=== PATIENT | male | born 2000 | race Caucasian/White ===

== ENCOUNTER 2019-09-18 08:53 | Emergency (ER) | payer SELFPAY ==
--- NOTE | 2019-09-18 08:56 | W.ED.NAVMDI ---
HPI - Nausea/Vomiting/Diarrhea General: Chief complaint: Nausea/Vomiting/Diarrhea Stated complaint: n/v Time Seen by Provider: 09/18/19 08:56 Source: patient Mode of arrival: ambulatory Limitations: no limitations History of Present Illness: HPI Narrative: Patient reports gastric discomfort for the last 2 days. Patient reports vomiting started yesterday evening and then worse this morning with persistent vomiting. Patient reports noticing some blood in emesis this morning. Patient denies any medical problems. Patient denies any routine medications. Patient appears mildly unwell. Patient appears in mild pain. Associated nausea: Yes Associated symtoms: Reports nausea Review of Systems General: Reports: 10 or more systems reviewed and unremarkable except in HPI and below GI: Reports: abdominal pain, nausea and vomiting PFS ED PFSH: Social History (Updated 06/05/19 @ 14:29 by Lucía De Los Santos LPN) Smoking and tobacco status: current every day smoker Physical Exam Const: COMMON NORMALS: no apparent distress and oriented x3 GENERAL APPEARANCE: cooperative HENMT: COMMON NORMALS: normocephalic, TM's normal bilaterally and external nose normal HEAD & SCALP: normal to inspection and normocephalic NOSE: external nose normal TYMPANIC MEMBRANE: TM's normal bilaterally MOUTH: oral and palatal mucosa normal THROAT: posterior oropharynx normal Eye: GENERAL EYE: normal appearance of both eyes Neck/C-Spine: COMMON NORMALS: full ROM Lymph: LYMPHATIC: no lymphadenopathy noted Chest: COMMONS NORMALS: inspection of chest normal Resp: COMMON NORMALS: normal respiratory effort EFFORT & INSPECTION: Yes able to speak in complete sentences Cardio: COMMON NORMALS: regular rate and regular rhythm RATE: regular rate RHYTHM: regular rhythm GI: AUSCULTATION: Yes hyperactive bowel sounds PALPATION: Yes tender Details: LLQ and LUQ : COMMON NORMALS: Yes no CVA tenderness BLADDER/KIDNEY EXAM: Yes no CVA tenderness Back/Pelvis: COMMON NORMALS: no CVA tenderness and thoracic and lumbar spine normal to inspection Extremity: COMMON NORMALS: normal to inspection Neuro: COMMON NORMALS: oriented x3 and moves all extremities Psych: COMMON NORMALS: mental status grossly normal and cooperative Skin: COMMON NORMALS: no rashes or lesions noted GENERAL SKIN EXAM: no rashes or lesions noted Course Vital Signs: Vital signs: Vital Signs Temperature 97.6 F 09/18/19 08:59 Pulse Rate 98 09/18/19 08:59 Respiratory Rate 18 09/18/19 08:59 Blood Pressure 130/88 09/18/19 08:59 Pulse Oximetry 100 09/18/19 08:59 MDM - Nausea/Vomiting/Diarrhea MDM Narrative: Medical decision making narrative: Patient comes in today with complaints of abdominal discomfort for the last 2 to 3 days. Patient reports last night he started having an episode of emesis x1. Patient then reports this morning he threw up multiple times and noticed some blood in his vomit. Patient denies any diarrhea. Exam notes soft abdomen mild tenderness in left upper and lower abdomen. Bowel sounds are present throughout. Vital signs were normal. Skin was warm and dry. Differential diagnosis includes but not limited to gastroenteritis, GI bleed, colitis, bowel viscus perforation, hyperemesis due to cannabis use, peptic ulcer disease, pancreatitis, appendicitis. Laboratory values noted some elevation in hemoglobin hematocrit, blood glucose was 122, patient some mild elevation in bilirubin. Urinalysis was insignificant. Drug screen was positive for cannabis. CT scan of the abdomen and pelvis noted no perforation of bowel, but did note gastro colitis inflammation. Patient was rehydrated with 1500 cc of fluid, and given medication for symptoms. Patient had improvement overall after rehydration and medication treatment. Patient will be treated with antibiotic for 5 days and started on pantoprazole for the next 2 weeks. Instructed patient not to use NSAIDs during that time. Recommended follow-up or return for worsening signs and symptoms. Lab Data: Labs: Lab Results 09/18/19 09/18/19 09/18/19 Range/Units 09:14 09:14 09:30 WBC 6.3 (4.5-13.0) 10^3/ uL RBC 6.26 H (4.1-5.3) 10^6/u L Hgb 17.6 H (11.7-16.6) g/dL Hct 52.1 H (42.0-52.0) % MCV 83.2 (80-94) fL MCH 28.1 (28.0-34.0) pg MCHC 33.8 (30.0-36.0) g/dL RDW 12.8 (12.1-15.1) % Plt Count 302 (130-400) 10^3/c mm MPV 9.6 (7.4-10.4) fL Neut % (Auto) 57.1 % Lymph % (Auto) 29.5 % [place] % (Auto) 7.6 % Eos % (Auto) 4.3 % Baso % (Auto) 1.3 % Neut # (Auto) 3.6 (1.8-8.0) 10^3/u L Lymph # (Auto) 1.9 (1.5-6.5) 10^3/u L [place] # (Auto) 0.5 (0.2-0.9) 10^3/u L Eos # (Auto) 0.3 (0.0-0.8) 10^3/u L Baso # (Auto) 0.1 (0.0-0.1) 10^3/u L Nucleated RBC % (a uto) 0 % Nucleated RBCs # 0.0 /100WBC Sodium 142 (136-145) mmol/L Potassium 3.6 (3.5-5.1) mmol/L Chloride 101 (98-107) mmol/L Carbon Dioxide 23 (22-29) mmol/L Anion Gap 21.6 H (5-19) BUN 12 (6-20) mg/dL Creatinine 1.1 (0.7-1.2) mg/dL GFR Calculation 85.3 L (90-130) mL/min Glucose 122 H (65-115) mg/dL Calculated Osmolal ity 291 (285-295) mOsm/k g Calcium 10.8 H (8.5-10.5) mg/dL Total Bilirubin 1.3 H (0.15-1.2) mg/dL AST 19 (0-40) U/L ALT 18 (0-41) U/L Alkaline Phosphata se 126 (40-130) IU/L Total Protein 8.5 (6.6-8.7) g/dL Albumin 5.4 H (3.5-5.2) g/dL Globulin 3.1 (1.3-4.6) g/dL Lipase 15 (13-60) U/L Urine Color Dark yellow (Yellow) Urine Appearance Sl hazy (CLEAR) Urine pH 5 (5-7) Ur Specific Gravit y 1.025 (1.005-1.030) Urine Protein 1+ H (Negative) Urine Glucose (UA) Norm (Normal) Urine Ketones 2+ H (Negative) Urine Blood Neg (Negative) Urine Nitrate Negative (Negative) Urine Bilirubin 1+ H (NEGATIVE) Urine Urobilinogen 4 H (Negative) mg/dL Ur Leukocyte Stefania ase Negative (Negative) Urine RBC None (0-2) /hpf Urine WBC None (0-5) /hpf Ur Squamous Epith Cells None (0-5) Urine Bacteria 2+ H (NONE) Urine Mucus 2+ Urine Opiates Scre en (Negative) ng/mL Ur Barbiturates Sc reen (Negative) ng/mL Ur Phencyclidine S crn (Negative) ng/mL Ur Amphetamines Sc reen (Negative) ng/mL U Benzodiazepines Scrn (Negative) ng/mL Urine Cocaine Scre en (Negative) ng/mL U Marijuana (THC) Screen (Negative) ng/mL 09/18/19 Range/Units 09:30 WBC (4.5-13.0) 10^3/ uL RBC (4.1-5.3) 10^6/u L Hgb (11.7-16.6) g/dL Hct (42.0-52.0) % MCV (80-94) fL MCH (28.0-34.0) pg MCHC (30.0-36.0) g/dL RDW (12.1-15.1) % Plt Count (130-400) 10^3/c mm MPV (7.4-10.4) fL Neut % (Auto) % Lymph % (Auto) % [place] % (Auto) % Eos % (Auto) % Baso % (Auto) % Neut # (Auto) (1.8-8.0) 10^3/u L Lymph # (Auto) (1.5-6.5) 10^3/u L [place] # (Auto) (0.2-0.9) 10^3/u L Eos # (Auto) (0.0-0.8) 10^3/u L Baso # (Auto) (0.0-0.1) 10^3/u L Nucleated RBC % (a uto) % Nucleated RBCs # /100WBC Sodium (136-145) mmol/L Potassium (3.5-5.1) mmol/L Chloride (98-107) mmol/L Carbon Dioxide (22-29) mmol/L Anion Gap (5-19) BUN (6-20) mg/dL Creatinine (0.7-1.2) mg/dL GFR Calculation (90-130) mL/min Glucose (65-115) mg/dL Calculated Osmolal ity (285-295) mOsm/k g Calcium (8.5-10.5) mg/dL Total Bilirubin (0.15-1.2) mg/dL AST (0-40) U/L ALT (0-41) U/L Alkaline Phosphata se (40-130) IU/L Total Protein (6.6-8.7) g/dL Albumin (3.5-5.2) g/dL Globulin (1.3-4.6) g/dL Lipase (13-60) U/L Urine Color (Yellow) Urine Appearance (CLEAR) Urine pH (5-7) Ur Specific Gravit y (1.005-1.030) Urine Protein (Negative) Urine Glucose (UA) (Normal) Urine Ketones (Negative) Urine Blood (Negative) Urine Nitrate (Negative) Urine Bilirubin (NEGATIVE) Urine Urobilinogen (Negative) mg/dL Ur Leukocyte Stefania ase (Negative) Urine RBC (0-2) /hpf Urine WBC (0-5) /hpf Ur Squamous Epith Cells (0-5) Urine Bacteria (NONE) Urine Mucus Urine Opiates Scre en Negative (Negative) ng/mL Ur Barbiturates Sc reen Negative (Negative) ng/mL Ur Phencyclidine S crn Negative (Negative) ng/mL Ur Amphetamines Sc reen Negative (Negative) ng/mL U Benzodiazepines Scrn Negative (Negative) ng/mL Urine Cocaine Scre en Negative (Negative) ng/mL U Marijuana (THC) Screen Positive H (Negative) ng/mL Discharge Plan Discharge Patient Disposition: Home, Self-Care Clinical Impression: Colitis, Dehydration Condition: Stable Prescriptions: New ondansetron HCl 4 mg tablet 4 mg PO Q8H PRN (Reason: nausea and vomiting) Qty: 10 RF: 0 ciprofloxacin HCl 500 mg tablet 500 mg PO BID Qty: 10 RF: 0 metronidazole 500 mg tablet 500 mg PO BID Qty: 10 RF: 0 dicyclomine 10 mg capsule 10 mg PO TID PRN (Reason: abdominal discomfort) Qty: 14 RF: 0 pantoprazole 40 mg tablet,delayed release (DR/EC) 40 mg PO DAILY Qty: 14 RF: 0 Discharge Orders: Discharge Order (Routine); Ordered 09/18/19 Ordered By: Aristides Cordero Referrals: Sameer Baker MD [Primary Care Provider] - Discharge Diet: Advance as tolerated Discharge Activity: Increase activity as tolerated Patient Instructions: Gastroenteritis (ED) Activity Restrictions/Additional Instructions: Drink clear liquid diet until pain and nausea and vomiting subside. Drink plenty of fluids. Take medications as directed. Follow-up with primary care in 1 week for recheck. Return to the ER for increased blood in stool or new concerns. Coding Level of Care Code ED Carrot Buncher for Chg Fwd Exam Comprehensive
[2019-09-18 08:59] VITALS: BP 130/88; PULSE 98; RESP 18; TEMP 36.4; O2SAT 100; BMI 20.7
--- NOTE | 2019-09-18 09:02 | CT_ITS ---
WS: [id number] CT ABDOMEN AND PELVIS WITH CONTRAST HISTORY: n/v, blood in emesis, abd pain TECHNIQUE: Imaging performed of the abdomen and pelvis with IV contrast. Single phase imaging of the abdomen. Coronal and sagittal reformats are submitted. All CT scans at [facility] use at least one of these dose optimization techniques: automated exposure control; mA and/or kV adjustment per patient size (includes targeted exams where dose is matched to clinical indication); or iterativ e reconstruction. IV CONTRAST: Omnipaque 300; 95 mL IV. Oral contrast: No DLP: 596.8 mGy.cm COMPARISON: None available. Lower thorax: Lung bases are clear. Heart is normal size. No hiatal hernia. Liver/biliary system: Mildly elongated RIGHT lobe of the liver. No mass or bile duct dilatation. Hype rvascular ill-defined nodule in the LEFT lobe liver is probably hemangioma. Gallbladder: Normal. No gallstones or wall thickening. No pericholecystic fluid. Pancreas: Normal. Spleen: Normal. Adrenal glands: Normal. Right kidney: RIGHT kidney is abnormally rotated with the pelvis directed anterior and slightly low l grzegorz. There is no obstruction. RIGHT kidney is anterior to the psoas muscle and causing mild flatteni ng of the IVC. The RIGHT renal artery extends inferiorly and may attach to the RIGHT common iliac art love. If surgery is ever contemplated in this patient this will need to be further evaluated. Left kidney: Normal. Aorta: Normal. Lymphadenopathy: None. Free fluid: None. GI tract: Abnormal appearance of the colon. There is no distention but there is shagginess of the muc aracelis and mild edema. No obstruction. Rectum is normal. Appendix is normal. Abdominal wall: Unremarkable abdominal wall. No hernia. Pelvis: Normal. Bones: Unremarkable. CT/CT abdomen pelvis w con* [id number] IMPRESSION: 1. Mild diffuse colitis. No free fluid or free air. 2. Normal appendix. 3. 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
[2019-09-18] MEDS: sodium chloride 0.9% 1,000 ML 999 ML IV (09:16)
[2019-09-18] MEDS: pantoprazole 40 mg SDV IVP (09:17)
[2019-09-18] MEDS: ondansetron 2 mg/ML SDV 2 mL 4 MG IVP (09:17)
[2019-09-18 09:29] LABS: Basophils # 0.1 10^3/uL (0.0-0.1); Basophils % 1.3 %; Eosinophils # 0.3 10^3/uL (0.0-0.8); Eosinophils % 4.3 %; Hematocrit 52.1 % (42.0-52.0); Hemoglobin 17.6 g/dL (11.7-16.6); Lymphocytes # 1.9 10^3/uL (1.5-6.5); Lymphocytes % 29.5 %; Mean Corpuscular HGB Conc 33.8 g/dL (30.0-36.0); Mean Corpuscular Hemoglobin 28.1 pg (28.0-34.0); Mean Corpuscular Volume 83.2 fL (80-94); Mean Platelet Volume 9.6 fL (7.4-10.4); Monocytes # 0.5 10^3/uL (0.2-0.9); Monocytes % 7.6 %; Neutrophils # 3.6 10^3/uL (1.8-8.0); Neutrophils % 57.1 %; Nucleated Red Blood Cells % 0 %; Platelet Count 302 10^3/cmm (130-400); Red Blood Count 6.26 10^6/uL (4.1-5.3); Red Cell Distribution Width 12.8 % (12.1-15.1); White Blood Count 6.3 10^3/uL (4.5-13.0)
--- NOTE | 2019-09-18 09:29 | PC.NURSE ---
Pt given urinal and urine sample requested.
[2019-09-18 09:40] LABS: Alanine Aminotransferase 18 U/L (0-41); Albumin Level 5.4 g/dL (3.5-5.2); Alkaline Phosphatase 126 IU/L (40-130); Anion Gap 21.6 (5-19); Aspartate Amino Transferase 19 U/L (0-40); Blood Urea Nitrogen 12 mg/dL (6-20); Calcium 10.8 mg/dL (8.5-10.5); Carbon Dioxide 23 mmol/L (22-29); Chloride 101 mmol/L (98-107); Globulin 3.1 g/dL (1.3-4.6); Glomerular Filtration Rate 85.3 mL/min (90-130); Glucose 122 mg/dL (65-115); Lipase 15 U/L (13-60); Osmolality Calculated 291 mOsm/kg (285-295); Potassium 3.6 mmol/L (3.5-5.1); Sodium 142 mmol/L (136-145); Total Bilirubin 1.3 mg/dL (0.15-1.2); Total Protein 8.5 g/dL (6.6-8.7)
[2019-09-18] MEDS: iohexol 300 mg/mL 100 mL Btl IV (09:47)
[2019-09-18 09:59] LABS: Amphetamines Screen Urine Negative (Negative); Barbiturates Screen Urine Negative (Negative); Benzodiazepines Screen Urine Negative (Negative); Cocaine Screen Urine Negative (Negative); Opiate Screen Urine Negative (Negative); PCP Screen Urine Negative (Negative); THC Screen Urine Positive (Negative)
[2019-09-18 10:06] LABS: Add Urine Microscopic? YES; Bilirubin Urine 1+ (NEGATIVE); Blood Urine Neg (Negative); Glucose Urine UA Norm (Normal); Ketones Urine 2+ (Negative); Leukocyte Esterase Urine Negative (Negative); Nitrate Urine Negative (Negative); Protein Urine 1+ (Negative); Specific Gravity, Urine 1.025 (1.005-1.030); Urine Appearance SL Hazy (CLEAR); Urine Color Dark Yellow (Yellow); Urobilinogen Urine 4 mg/dL (Negative); pH Urine 5 (5-7)
[2019-09-18 10:07] LABS: Add Urine Culture? No; Bacteria Urine 2+; Mucus Urine 2+
[2019-09-18] MEDS: metoclopramide 5 mg/mL SDV 2 mL 10 MG IVP (10:25)
[2019-09-18] MEDS: sodium chloride 0.9% 500 ML 999 ML IV (10:28)
[2019-09-18] MEDS: metroNIDAZOLE 500 MG Tablet PO (10:28)
[2019-09-18] MEDS: ciprofloxacin 500 mg Tablet PO (10:29)
[2019-09-18 11:01] VITALS: BP 132/89; PULSE 69; RESP 17; O2SAT 98
== END 2019-09-18 10:59 | disposition home or self-care (01) ==
PROVIDERS: Emergency Provider Nurse Practitioner Family; Family Provider General Practice; PCP General Practice
DX: K52.9 Noninfective gastroenteritis and colitis, unspecified (principal); E86.0 Dehydration; F17.210 Nicotine dependence, cigarettes, uncomplicated
CPT/HCPCS: 12345; 74177; 80053; 80306; 81001; 83690; 85025; 96360; 96361; 96374; 96375; 99283; C9113; J2405; J2765; J7030; J7040; Q9967

== ENCOUNTER 2019-09-20 22:45 | Emergency (ER) | payer SELFPAY ==
[2019-09-20 22:52] VITALS: BP 139/77; PULSE 108; RESP 18; TEMP 37.1; O2SAT 100; BMI 22.1
--- NOTE | 2019-09-20 22:58 | ED_ITS ---
HPI - Chest Pain General: Chief Complaint: Chest Pain Stated Complaint: rib pain/dizzy Time Seen by Provider: 09/20/19 22:53 History of Present Illness: HPI narrative: Patient is a 19-year-old male who comes to the ED with chest pain and dizziness. Symptoms started just prior to arrival. Patient started feeling some chest pain on the lateral right and left anterior side of the chest. He also started feeling a little lightheaded and shaky. Patient states he is a daily marijuana user, but states he has been smoking a lot of marijuana today. Associated symptoms: Deny abdominal pain, dyspnea, fever(s), nausea, palpitations or vomiting Review of Systems Const: Denies: fever, chills or fatigue Eyes: Denies: change in vision or eye discomfort ENMT: Denies: throat pain, painful swallowing, nasal discharge or nasal congestion Card: Reports: chest pain (right and left lateral chest pain.); Denies: palpitations, edema, swelling of feet/ankles, shortness of breath on exertion or shortness of breath when lying down Resp: Denies: shortness of breath, productive cough or non-productive cough GI: Denies: abdominal pain, nausea, vomiting, diarrhea, constipation or blood in stool : Denies: flank pain, difficulty urinating, painful urination or blood in urine Musc: Denies: neck pain, back pain or extremity swelling Skin/Breast: Denies: rash or new lesion Neuro: Reports: dizziness; Denies: headache, numbness in extremities or weakness in extremities PFS ED PFSH: Social History Smoking and tobacco status: current some day smoker Physical Exam Const: COMMON NORMALS: oriented x3, healthy appearing and alert GENERAL APPEARANCE: cooperative and well hydrated HENMT: COMMON NORMALS: normocephalic HEAD & SCALP: normocephalic MOUTH: oral and palatal mucosa normal THROAT: posterior oropharynx normal and uvula midline Eye: COMMON NORMALS: PERRL PUPIL: Yes PERRL Neck/C-Spine: COMMON NORMALS: supple GENERAL: Yes normal visual inspection Chest: CHEST: Yes tenderness (Reproducible tenderness upon palpation of right and left lower lateral chest wall.) Resp: COMMON NORMALS: normal respiratory effort, no retractions, no use of accessory muscles and clear to auscultation bilaterally AUSCULTATION: clear to auscultation bilaterally Cardio: COMMON NORMALS: regular rate, regular rhythm, S1 normal heart sound, S2 normal heart sound, no gallops, no clicks, no murmurs and peripheral pulses 2+ throughout RATE: regular rate RHYTHM: regular rhythm HEART SOUNDS: S1 normal and S2 normal PERIPHERAL PULSES: pulses 2+ throughout GI: COMMON NORMALS: normal to inspection, nondistended, normoactive bowel sounds, soft to palpation, non-tender and no masses PALPATION: Yes soft : COMMON NORMALS: Yes no CVA tenderness BLADDER/KIDNEY EXAM: Yes no CVA tenderness Back/Pelvis: COMMON NORMALS: no CVA tenderness Extremity: COMMON NORMALS: normal to inspection and no pedal edema Neuro: COMMON NORMALS: oriented x3 and moves all extremities SENSORIUM/ORIENTATION: Yes alert Psych: MOOD & AFFECT: Yes anxious Skin: COMMON NORMALS: no rashes or lesions noted GENERAL SKIN EXAM: no rashes or lesions noted and dry skin Course Vital Signs: Vital signs: Vital Signs Temperature 98.7 F 09/20/19 22:52 Pulse Rate 76 09/21/19 01:33 Respiratory Rate 16 09/21/19 01:33 Blood Pressure 124/72 09/21/19 01:33 Pulse Oximetry 99 09/21/19 01:33 MDM - Chest Pain MDM Narrative: Medical decision making narrative: Patient is a 19-year-old male who comes to the ED with chest pain and lightheadedness. Patient states that he has smoked a lot of marijuana today. EKG showed normal sinus rhythm. Troponins were negative. CBC, CMP and urinalysis were unremarkable. Chest x- ray showed no acute findings. Patient's symptoms improved with lorazepam, hydrocodone, IV fluids and Reglan. Patient diagnosed with cannabis abuse with induced anxiety disorder. Patient was discharged with information about cannabis abuse. He was told to follow-up with his PCP in 7 days for reevaluation. Patient understood and agreed with plan. Lab Data: Attestation: I reviewed the patient's lab results. Labs: Lab Results 09/20/19 09/20/19 09/20/19 Range/Units 23:30 23:30 23:30 WBC 5.1 (4.5-13.0) 10^3/ uL RBC 5.42 H (4.1-5.3) 10^6/u L Hgb 15.5 (11.7-16.6) g/dL Hct 45.5 (42.0-52.0) % MCV 83.9 (80-94) fL MCH 28.6 (28.0-34.0) pg MCHC 34.1 (30.0-36.0) g/dL RDW 12.9 (12.1-15.1) % Plt Count 293 (130-400) 10^3/c mm MPV 9.6 (7.4-10.4) fL Neut % (Auto) 50.2 % Lymph % (Auto) 33.5 % [place] % (Auto) 10.6 % Eos % (Auto) 4.5 % Baso % (Auto) 1.2 % Neut # (Auto) 2.6 (1.8-8.0) 10^3/u L Lymph # (Auto) 1.7 (1.5-6.5) 10^3/u L [place] # (Auto) 0.5 (0.2-0.9) 10^3/u L Eos # (Auto) 0.2 (0.0-0.8) 10^3/u L Baso # (Auto) 0.1 (0.0-0.1) 10^3/u L Nucleated RBC % (a uto) 0 % Nucleated RBCs # 0.0 /100WBC Sodium 139 (136-145) mmol/L Potassium 3.4 L (3.5-5.1) mmol/L Chloride 104 (98-107) mmol/L Carbon Dioxide 24 (22-29) mmol/L Anion Gap 14.4 (5-19) BUN 8 (6-20) mg/dL Creatinine 1.2 (0.7-1.2) mg/dL GFR Calculation 77.2 L (90-130) mL/min Glucose 108 (65-115) mg/dL Calculated Osmolal ity 284 L (285-295) mOsm/k g Calcium 9.9 (8.5-10.5) mg/dL Total Bilirubin 0.6 (0.15-1.2) mg/dL AST 18 (0-40) U/L ALT 13 (0-41) U/L Alkaline Phosphata se 107 (40-130) IU/L Troponin T Baselin e 6 (0-15) ng/mL Total Protein 7.6 (6.6-8.7) g/dL Albumin 5.1 (3.5-5.2) g/dL Globulin 2.5 (1.3-4.6) g/dL Urine Color (Yellow) Urine Appearance (CLEAR) Urine pH (5-7) Ur Specific Gravit y (1.005-1.030) Urine Protein (Negative) Urine Glucose (UA) (Normal) Urine Ketones (Negative) Urine Blood (Negative) Urine Nitrate (Negative) Urine Bilirubin (NEGATIVE) Urine Urobilinogen (Negative) mg/dL Ur Leukocyte Stefania ase (Negative) Urine RBC (0-2) /hpf Urine WBC (0-5) /hpf Ur Squamous Epith Cells (0-5) Urine Bacteria (NONE) Urine Mucus 09/21/19 Range/Units 00:30 WBC (4.5-13.0) 10^3/ uL RBC (4.1-5.3) 10^6/u L Hgb (11.7-16.6) g/dL Hct (42.0-52.0) % MCV (80-94) fL MCH (28.0-34.0) pg MCHC (30.0-36.0) g/dL RDW (12.1-15.1) % Plt Count (130-400) 10^3/c mm MPV (7.4-10.4) fL Neut % (Auto) % Lymph % (Auto) % [place] % (Auto) % Eos % (Auto) % Baso % (Auto) % Neut # (Auto) (1.8-8.0) 10^3/u L Lymph # (Auto) (1.5-6.5) 10^3/u L [place] # (Auto) (0.2-0.9) 10^3/u L Eos # (Auto) (0.0-0.8) 10^3/u L Baso # (Auto) (0.0-0.1) 10^3/u L Nucleated RBC % (a uto) % Nucleated RBCs # /100WBC Sodium (136-145) mmol/L Potassium (3.5-5.1) mmol/L Chloride (98-107) mmol/L Carbon Dioxide (22-29) mmol/L Anion Gap (5-19) BUN (6-20) mg/dL Creatinine (0.7-1.2) mg/dL GFR Calculation (90-130) mL/min Glucose (65-115) mg/dL Calculated Osmolal ity (285-295) mOsm/k g Calcium (8.5-10.5) mg/dL Total Bilirubin (0.15-1.2) mg/dL AST (0-40) U/L ALT (0-41) U/L Alkaline Phosphata se (40-130) IU/L Troponin T Baselin e (0-15) ng/mL Total Protein (6.6-8.7) g/dL Albumin (3.5-5.2) g/dL Globulin (1.3-4.6) g/dL Urine Color Yellow (Yellow) Urine Appearance Clear (CLEAR) Urine pH 6.5 (5-7) Ur Specific Gravit y 1.020 (1.005-1.030) Urine Protein Neg (Negative) Urine Glucose (UA) Norm (Normal) Urine Ketones 1+ H (Negative) Urine Blood Neg (Negative) Urine Nitrate Negative (Negative) Urine Bilirubin Neg (NEGATIVE) Urine Urobilinogen 1 H (Negative) mg/dL Ur Leukocyte Stefania ase 1+ H (Negative) Urine RBC 0-4 H (0-2) /hpf Urine WBC 0-4 H (0-5) /hpf Ur Squamous Epith Cells 0-4 H (0-5) Urine Bacteria 1+ H (NONE) Urine Mucus 2+ Imaging Data^: CXR: Attestation: I personally reviewed and interpreted this imaging study as follows: My impression: No acute findings. Pending final radiology report. EKG Data^: EKG 1: Attestation: I personally reviewed and interpreted this EKG as follows: EKG interpretation date: 09/21/19 Interpretation: Normal sinus rhythm, 75 bpm, no ST segment elevation or depression seen, pwmedina presents. 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 Condition: Stable Prescriptions: No Action ondansetron HCl 4 mg tablet 4 mg PO Q8H PRN (Reason: nausea and vomiting) Qty: 10 RF: 0 ciprofloxacin HCl 500 mg tablet 500 mg PO BID Qty: 10 RF: 0 metronidazole 500 mg tablet 500 mg PO BID Qty: 10 RF: 0 dicyclomine 10 mg capsule 10 mg PO TID PRN (Reason: abdominal discomfort) Qty: 14 RF: 0 pantoprazole 40 mg tablet,delayed release (DR/EC) 40 mg PO DAILY Qty: 14 RF: 0 Discharge Orders: Discharge Order (Routine); Ordered 09/21/19 Ordered By: Sameer Arceo Referrals: Sameer Baker MD [Primary Care Provider] - Discharge Diet: Regular Discharge Activity: Resume usual activity Patient Instructions: Cannabis Abuse (ED) Activity Restrictions/Additional Instructions: Follow-up with your PCP in the next 7 days for reevaluation. Continue taking all previously prescribed home medications. I attached some information about cannabis abuse. Stay hydrated and drink plenty of fluids. Discharge Date/Time: 09/21/19 01:38 Coding Level of Care Code ED Clinical Rehab Liaison for Aidan Fwd Exam Comprehensive
--- NOTE | 2019-09-20 23:06 | XR_ITS ---
WS: [id number] XR chest 1V portable [id number] REASON FOR EXAM: cp FINDINGS: Hyper aerated changes suggesting mild air trapping. There are scattered mucous plugs bilaterally. The heart was not enlarged. There is no definite pneumonia, pneumothorax, or mass effect. XR/XR chest 1V portable [id number] IMPRESSION: Upper aerated lungs with mucous plugs suggest bronchial asthma.
--- NOTE | 2019-09-20 23:09 | ECG_ITS ---
Measurements Intervals [place] Rate: 75 P: 72 [place]: 170 QRS: 71 QRSD: 93 T: 40 QT: 357 QTc: 400 SINUS RHYTHM WITH SINUS ARRHYTHMIA No previous ECG available for comparison Electronically Signed On 09-21-2019 18:15:45 CDT by Luzma Coleman M.D. [email or web address]
[2019-09-20] MEDS: sodium chloride 0.9% 1,000 ML 999 ML IV (23:39)
[2019-09-20] MEDS: metoclopramide 5 mg/mL SDV 2 mL 10 MG IVP (23:39)
[2019-09-20 23:40] LABS: Basophils # 0.1 10^3/uL (0.0-0.1); Basophils % 1.2 %; Eosinophils # 0.2 10^3/uL (0.0-0.8); Eosinophils % 4.5 %; Hematocrit 45.5 % (42.0-52.0); Hemoglobin 15.5 g/dL (11.7-16.6); Lymphocytes # 1.7 10^3/uL (1.5-6.5); Lymphocytes % 33.5 %; Mean Corpuscular HGB Conc 34.1 g/dL (30.0-36.0); Mean Corpuscular Hemoglobin 28.6 pg (28.0-34.0); Mean Corpuscular Volume 83.9 fL (80-94); Mean Platelet Volume 9.6 fL (7.4-10.4); Monocytes # 0.5 10^3/uL (0.2-0.9); Monocytes % 10.6 %; Neutrophils # 2.6 10^3/uL (1.8-8.0); Neutrophils % 50.2 %; Nucleated Red Blood Cells % 0 %; Platelet Count 293 10^3/cmm (130-400); Red Blood Count 5.42 10^6/uL (4.1-5.3); Red Cell Distribution Width 12.9 % (12.1-15.1); White Blood Count 5.1 10^3/uL (4.5-13.0)
[2019-09-20 23:54] LABS: Alanine Aminotransferase 13 U/L (0-41); Albumin Level 5.1 g/dL (3.5-5.2); Alkaline Phosphatase 107 IU/L (40-130); Anion Gap 14.4 (5-19); Aspartate Amino Transferase 18 U/L (0-40); Blood Urea Nitrogen 8 mg/dL (6-20); Calcium 9.9 mg/dL (8.5-10.5); Carbon Dioxide 24 mmol/L (22-29); Chloride 104 mmol/L (98-107); Globulin 2.5 g/dL (1.3-4.6); Glomerular Filtration Rate 77.2 mL/min (90-130); Glucose 108 mg/dL (65-115); Osmolality Calculated 284 mOsm/kg (285-295); Potassium 3.4 mmol/L (3.5-5.1); Sodium 139 mmol/L (136-145); Total Bilirubin 0.6 mg/dL (0.15-1.2); Total Protein 7.6 g/dL (6.6-8.7); Troponin(5th) Baseline 6 ng/mL (0-15)
[2019-09-21] MEDS: ketorolac 30 mg/mL INJ IVP (00:22)
[2019-09-21] MEDS: HYDROcodone-acetaminophen 5-325 mg Tablet 1 TAB PO (00:52)
[2019-09-21] MEDS: LORazepam 2 mg/mL INJ 1 mL 1 MG IVP (00:52)
[2019-09-21 01:02] LABS: Bilirubin Urine Neg (NEGATIVE); Blood Urine Neg (Negative); Glucose Urine UA Norm (Normal); Ketones Urine 1+ (Negative); Leukocyte Esterase Urine 1+ (Negative); Nitrate Urine Negative (Negative); Protein Urine Neg (Negative); Urine Appearance Clear (CLEAR); Urine Color Yellow (Yellow); Urobilinogen Urine 1 mg/dL (Negative); pH Urine 6.5 (5-7)
[2019-09-21 01:04] LABS: Add Urine Culture? No; Bacteria Urine 1+; Mucus Urine 2+; RBC Urine 0-4 /hpf (0-2); Squamous Epithelial Cell Urine 0-4 (0-5); WBC Urine 0-4 /hpf (0-5)
[2019-09-21 01:33] VITALS: BP 124/72; PULSE 76; RESP 16; O2SAT 99
== END 2019-09-21 01:38 | disposition home or self-care (01) ==
PROVIDERS: Emergency Provider Physician Assistant; Family Provider General Practice; PCP General Practice
DX: F12.180 Cannabis abuse with cannabis-induced anxiety disorder (principal); F17.210 Nicotine dependence, cigarettes, uncomplicated
CPT/HCPCS: 12345; 71045; 80053; 81001; 84484; 85025; 93005; 96361; 96374; 96375; 99281; 99284; J1885; J2060; J2765; J7030

== ENCOUNTER 2020-01-18 01:48 | Emergency (ER) | payer SELFPAY ==
[2020-01-18 01:53] VITALS: BP 117/71; PULSE 71; RESP 17; TEMP 36.8; O2SAT 96; BMI 20.9
--- NOTE | 2020-01-18 01:59 | W.ED.MALEGU ---
HPI - Male Genitourinary General: Chief complaint: Urogenital-Male Stated complaint: found lump/ pain gone up today Time Seen by Provider: 01/18/20 01:59 History of Present Illness: HPI Narrative: 19-year-old male presents with left testicular pain, and a painful lump for the past couple of days. He noticed a lump last night. He was seen in urgent care earlier today, and the lump was felt then as well. He was placed on antibiotics. He notes that the pain worsened tonight. He believes he has had an on and off fever for the past couple of days, low-grade. He denies any discharge. MD Complaint: testicle pain Onset (ago): day(s) Duration: constant Location: left testicle Severity: moderate Quality: aching Relieving factors: none Exacerbating factors: urination Associated symptoms: Reports fevers/chills, nausea and mass; Deny hematuria, rash, swelling, urinary incontinence, urinary retention or vomiting Review of Systems Const: Denies: fever(s) or chills Card: Denies: chest pain or palpitations Resp: Denies: dyspnea or productive cough GI: Reports: nausea; Denies: vomiting : Denies: urinary incontinence or hematuria PFS ED PFSH: Social History Smoking and tobacco status: current some day smoker Physical Exam Const: COMMON NORMALS: no acute distress and patient oriented x3 Chest: COMMONS NORMALS: normal inspection of the chest Resp: COMMON NORMALS: normal respiratory effort, No retractions, No use of accessory muscles and clear to auscultation bilaterally AUSCULTATION: clear to auscultation bilaterally Cardio: COMMON NORMALS: regular rate and regular rhythm RATE: regular rate RHYTHM: regular rhythm HEART SOUNDS: no murmurs GI: COMMON NORMALS: Soft to palpation and non-tender PALPATION: Yes Soft to palpation : PENIS: normal penis SCROTUM: Yes testes descended bilaterally TESTES: Yes testicular tenderness and No testicular mass Neuro: COMMON NORMALS: patient oriented x3 Course Vital Signs: Vital signs: Vital Signs Temperature 98.2 F 01/18/20 01:53 Pulse Rate 71 01/18/20 03:40 Respiratory Rate 16 01/18/20 03:40 Blood Pressure 92/49 01/18/20 03:40 Pulse Oximetry 96 01/18/20 03:40 MDM - Male MDM Narrative: Medical decision making narrative: 19-year-old male presents with left testicular pain. He said he felt the mass. I do not feel a mass. Urinalysis is essentially negative. His ultrasound shows a varicosity in the left scrotum, with no other abnormality. We will have him continue his antibiotics he was placed on yesterday, and treat his pain. Lab Data: Labs: Lab Results 01/18/20 Range/Units 02:33 Urine Color Yellow (Yellow) Urine Appearance Clear (CLEAR) Urine pH 6 (5-7) Ur Specific Gravit y 1.020 (1.005-1.030) Urine Protein Trace (Negative) Urine Glucose (UA) Norm (Normal) Urine Ketones Negative (Negative) Urine Blood Neg (Negative) Urine Nitrate Negative (Negative) Urine Bilirubin Neg (NEGATIVE) Urine Urobilinogen Norm (Negative) mg/dL Ur Leukocyte Stefania ase Negative (Negative) Urine RBC 0-4 H (0-2) /hpf Urine WBC 0-4 H (0-5) /hpf Ur Squamous Epith Cells 0-4 H (0-5) Amorphous Sediment Not Reportable Urine Bacteria Trace (NONE) Hyaline Casts 5-10 H Urine Mucus 2+ Discharge Plan Discharge Patient Disposition: Home Clinical Impression: Pain in left testicle Condition: Stable Prescriptions: New ketorolac 10 mg tablet 10 mg PO TID PRN (Reason: pain) Qty: 10 RF: 0 No Action ondansetron HCl [Zofran] 4 mg tablet 4 mg PO Q8H PRN (Reason: nausea and vomiting) Qty: 20 RF: 0 sulfamethoxazole-trimethoprim [Bactrim DS] 800-160 mg tablet 1 tab PO Q12H 7 Days Qty: 14 RF: 0 pantoprazole 40 mg tablet,delayed release (DR/EC) 40 mg PO DAILY Qty: 14 RF: 0 Discharge Orders: Discharge Order (Routine); Ordered 01/18/20 Ordered By: Kamaljit Salazar Discharge Diet: Advance as tolerated Discharge Activity: Increase activity as tolerated Patient Instructions: Testicle Pain (ED) Activity Restrictions/Additional Instructions: Continue your antibiotics. Pain medication as directed. Ice may help. Return for fever greater than 101 despite 2-3 doses of antibiotics, discharge or blood from the penis, worsening pain despite treatment, other concerning symptoms. Coding Level of Care Code ED Vegetable Ii Farmworker for Chg Fwd Exam Detailed
[2020-01-18 02:03] VITALS: BP 115/81; PULSE 72; RESP 17; O2SAT 97
--- NOTE | 2020-01-18 02:14 | US_ITS ---
WS: [id number] TESTICULAR ULTRASOUND HISTORY: l testicle pain COMPARISON: None available. TECHNIQUE: Real-time and color Doppler imaging or utilized to perform a testicular ultrasound. Right testicle: 4.3 cm x 2.6 cm x 2.0 cm. Normal size and echogenicity. No mass or torsion. Normal color Doppler is present throughout. Systolic and diastolic velocities are both present. No significant hydrocele. Right epididymis: Normal epididymis with no increased vascularity. Left testicle: 4.2 cm x 3.0 cm x 2.2 cm. Normal size and echogenicity. No mass or torsion. Color Doppler is present. Slightly increased as compared to the RIGHT. No significant hydrocele. Left epididymis: Limited evaluation. Not well visualized. US/US scrotum [id number] IMPRESSION: 1. Incomplete evaluation of the LEFT epididymis. Patient has been called back for additional imaging. If the patient returns an addendum will be submitted. 2. Suspicious for mild LEFT orchitis. Indeterminate for LEFT epididymitis. 3. No testicular mass.
[2020-01-18 02:34] VITALS: PULSE 73; RESP 17; O2SAT 94
--- NOTE | 2020-01-18 02:48 | PC.NURSE ---
ultrasound in room
[2020-01-18 02:56] LABS: Bilirubin Urine Neg (NEGATIVE); Blood Urine Neg (Negative); Glucose Urine UA Norm (Normal); Ketones Urine Negative (Negative); Leukocyte Esterase Urine Negative (Negative); Nitrate Urine Negative (Negative); Protein Urine Trace (Negative); Urine Appearance Clear (CLEAR); Urine Color Yellow (Yellow); Urobilinogen Urine Norm (Negative); pH Urine 6 (5-7)
[2020-01-18 02:57] LABS: Add Urine Microscopic? YES; RBC Urine 0-4 /hpf (0-2); WBC Urine 0-4 /hpf (0-5)
[2020-01-18 02:58] LABS: Add Urine Culture? No; Bacteria Urine TRACE; Mucus Urine 2+; Squamous Epithelial Cell Urine 0-4 (0-5)
[2020-01-18 03:01] VITALS: BP 99/51; PULSE 69; RESP 16; O2SAT 94
[2020-01-18 03:40] VITALS: BP 92/49; PULSE 71; RESP 16; O2SAT 96
[2020-01-18 03:49] VITALS: BP 101/48; PULSE 84; RESP 16; O2SAT 96
== END 2020-01-18 03:54 | disposition home or self-care (01) ==
PROVIDERS: Emergency Provider Emergency Medicine
DX: N50.812 Left testicular pain (principal); F17.210 Nicotine dependence, cigarettes, uncomplicated
CPT/HCPCS: 12345; 76870; 81001; 99282; 99283

== ENCOUNTER 2020-01-20 23:35 | Emergency (ER) | payer SELFPAY ==
[2020-01-20 23:41] VITALS: BP 145/60; PULSE 92; RESP 14; TEMP 36.7; O2SAT 97; BMI 20.9
--- NOTE | 2020-01-20 23:45 | ECG_ITS ---
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 Measurements Intervals [place] Rate: 58 P: 71 NH: 176 QRS: 77 QRSD: 92 T: 54 QT: 387 QTc: 382 Interpretive Statements SINUS BRADYCARDIA EARLY REPOLARIZATION [ST ELEVATION WITH NORMALLY INFLECTED T WAVE] Compared to ECG 09/20/2019 23:29:35 Early repolarization now present Sinus rhythm no longer present Sinus arrhythmia no longer present Electronically Signed On 01-21-2020 16:18:49 CDT by Roge Ralph M.D. [id number]
--- NOTE | 2020-01-20 23:55 | ED_ITS ---
HPI - Neuro Symptoms/Deficit General: Chief Complaint: Neuro Symptoms/Deficit Stated Complaint: leg pain/ light headed/ blurry vision Time Seen by Provider: 01/20/20 23:42 Source: patient Mode of arrival: ambulatory Limitations: no limitations History of Present Illness: HPI Narrative: 19-year-old male states he has had numbness to his legs and his body. Patient was diagnosed with variceal his testicle and he is concerned he is got a blood clot from that. He denies any pain in his legs denies any difficulty walking. Denies any headache or slurred speech. Associated symptoms: Deny chest pain, nausea or vomiting Review of Systems Const: Denies: fever(s), chills, body aches or change in appetite Eyes: Denies: blurry vision or eye discomfort ENMT: Denies: throat pain or dental pain Card: Denies: chest pain Resp: Denies: dyspnea GI: Denies: abdominal pain, nausea, vomiting or diarrhea : Denies: dysuria Musc: Denies: neck pain or back pain Skin/Breast: Denies: rash Neuro: Reports: numbness in extremities Psych: Denies: depression Delfino/Lymph: Denies: easy bruising All/Imm: Denies: urticaria PFSH ED PFSH: Social History Smoking and tobacco status: current every day smoker Substance/Drug Use: current Substance/Drug use frequency: few times a week Substance/Drug use type: Marijuana Physical Exam Const: COMMON NORMALS: no acute distress, patient oriented x3 and healthy appearing HENMT: COMMON NORMALS: normocephalic and atraumatic HEAD & SCALP: normocephalic and atraumatic Eye: COMMON NORMALS: Equal, round and reactive pupils present and EOMs intact bilaterally PUPIL: Yes Equal, round and reactive pupils present Neck/C-Spine: COMMON NORMALS: full ROM and supple Chest: COMMONS NORMALS: normal inspection of the chest and normal palpation of entire chest wall Resp: COMMON NORMALS: normal respiratory effort, No retractions, No use of accessory muscles and clear to auscultation bilaterally AUSCULTATION: clear to auscultation bilaterally Cardio: COMMON NORMALS: regular rate, regular rhythm and No murmurs present (Cardio) RATE: regular rate RHYTHM: regular rhythm GI: COMMON NORMALS: Normal to inspection, nondistended, normoactive bowel sounds present, Soft to palpation, non-tender and no masses PALPATION: Yes Soft to palpation Extremity: COMMON NORMALS: normal to inspection and full ROM Neuro: COMMON NORMALS: patient oriented x3, moves all extremities and no focal motor deficits Psych: COMMON NORMALS: mental status grossly normal, Normal thought process present and cooperative THOUGHT PROCESS: Normal thought process present Skin: COMMON NORMALS: no rashes or lesions noted and no wounds GENERAL SKIN EXAM: no rashes or lesions noted Course Vital Signs: Vital signs: Vital Signs Temperature 98.1 F 01/20/20 23:41 Pulse Rate 92 01/20/20 23:41 Respiratory Rate 14 01/20/20 23:41 Blood Pressure 145/60 01/20/20 23:41 Pulse Oximetry 97 01/20/20 23:41 MDM - Neuro Symptoms/Deficit MDM Narrative: Medical decision making narrative: Eben presents here with paresthesias. Patient's neurological exam here is benign he has no weakness. Patient no signs of stroke. Patient's lab work here is normal. EKG is normal as well. He is stable for discharge and is return if worsening. Lab Data: Labs: Lab Results 01/21/20 01/21/20 Range/Units 00:40 00:40 WBC 5.9 (4.5-13.0) 10^3/ uL RBC 5.22 (4.1-5.3) 10^6/u L Hgb 14.9 (11.7-16.6) g/dL Hct 46.6 (42.0-52.0) % MCV 89.3 (80-94) fL MCH 28.5 (28.0-34.0) pg MCHC 32.0 (30.0-36.0) g/dL RDW 13.3 (12.1-15.1) % Plt Count 271 (130-400) 10^3/c mm MPV 9.6 (7.4-10.4) fL Neut % (Auto) 52.2 % Lymph % (Auto) 28.9 % [place]ock[place] % (Auto) 12.3 % Eos % (Auto) 5.0 % Baso % (Auto) 1.4 % Neut # (Auto) 3.06 (1.8-8.0) 10^3/u L Lymph # (Auto) 1.7 (1.5-6.5) 10^3/u L [place] # (Auto) 0.7 (0.2-0.9) 10^3/u L Eos # (Auto) 0.3 (0.0-0.8) 10^3/u L Baso # (Auto) 0.1 (0.0-0.1) 10^3/u L Nucleated RBC % (a uto) 0 % Nucleated RBCs # 0.0 /100WBC Sodium 141 (136-145) mmol/L Potassium 4.5 (3.5-5.1) mmol/L Chloride 104 (98-107) mmol/L Carbon Dioxide 29 (22-29) mmol/L Anion Gap 12.5 (5-19) BUN 15 (6-20) mg/dL Creatinine 1.3 H (0.7-1.2) mg/dL GFR Calculation 70.4 L (90-130) mL/min Glucose 84 (65-115) mg/dL Calculated Osmolal ity 287 (285-295) mOsm/k g Calcium 9.0 (8.5-10.5) mg/dL Total Bilirubin 0.3 (0.15-1.2) mg/dL AST 19 (0-40) U/L ALT 18 (0-41) U/L Alkaline Phosphata se 102 (40-130) IU/L Total Protein 6.5 L (6.6-8.7) g/dL Albumin 4.2 (3.5-5.2) g/dL Globulin 2.3 (1.3-4.6) g/dL EKG Data^: EKG 1: Attestation: I personally reviewed and interpreted this EKG as follows: EKG interpretation date: 01/21/20 EKG interpretation time: 01:11 Interpretation: sinus kayleen hr [address] or t wave abnormalities qrs 92 qtc 384 Discharge Plan Discharge Patient Disposition: Home Clinical Impression: Paresthesia Condition: Stable Prescriptions: No Action ondansetron HCl [Zofran] 4 mg tablet 4 mg PO Q8H PRN (Reason: nausea and vomiting) Qty: 20 RF: 0 sulfamethoxazole-trimethoprim [Bactrim DS] 800-160 mg tablet 1 tab PO Q12H 7 Days Qty: 14 RF: 0 pantoprazole 40 mg tablet,delayed release (DR/EC) 40 mg PO DAILY Qty: 14 RF: 0 ketorolac 10 mg tablet 10 mg PO TID PRN (Reason: pain) Qty: 10 RF: 0 Discharge Orders: Discharge Order (Routine); Ordered 01/21/20 Ordered By: Soren Gonzalez Discharge Diet: Advance as tolerated Discharge Activity: Resume usual activity Patient Instructions: Paresthesia (ED) Coding Level of Care Code ED Child Center Assistant for Aidan Fwkarl Exam Comprehensive
[2020-01-21] MEDS: sodium chloride 0.9% 1,000 ML 999 ML IV (00:45)
[2020-01-21 00:51] LABS: Basophils # 0.1 10^3/uL (0.0-0.1); Basophils % 1.4 %; Eosinophils # 0.3 10^3/uL (0.0-0.8); Hematocrit 46.6 % (42.0-52.0); Hemoglobin 14.9 g/dL (11.7-16.6); Lymphocytes # 1.7 10^3/uL (1.5-6.5); Lymphocytes % 28.9 %; Mean Corpuscular Hemoglobin 28.5 pg (28.0-34.0); Mean Corpuscular Volume 89.3 fL (80-94); Mean Platelet Volume 9.6 fL (7.4-10.4); Monocytes # 0.7 10^3/uL (0.2-0.9); Monocytes % 12.3 %; Neutrophils # 3.06 10^3/uL (1.8-8.0); Neutrophils % 52.2 %; Nucleated Red Blood Cells % 0 %; Platelet Count 271 10^3/cmm (130-400); Red Blood Count 5.22 10^6/uL (4.1-5.3); Red Cell Distribution Width 13.3 % (12.1-15.1); White Blood Count 5.9 10^3/uL (4.5-13.0)
[2020-01-21 01:09] LABS: Alanine Aminotransferase 18 U/L (0-41); Albumin Level 4.2 g/dL (3.5-5.2); Alkaline Phosphatase 102 IU/L (40-130); Anion Gap 12.5 (5-19); Aspartate Amino Transferase 19 U/L (0-40); Blood Urea Nitrogen 15 mg/dL (6-20); Carbon Dioxide 29 mmol/L (22-29); Chloride 104 mmol/L (98-107); Globulin 2.3 g/dL (1.3-4.6); Glomerular Filtration Rate 70.4 mL/min (90-130); Glucose 84 mg/dL (65-115); Osmolality Calculated 287 mOsm/kg (285-295); Potassium 4.5 mmol/L (3.5-5.1); Sodium 141 mmol/L (136-145); Total Bilirubin 0.3 mg/dL (0.15-1.2); Total Protein 6.5 g/dL (6.6-8.7)
[2020-01-21 02:08] VITALS: BP 107/68; PULSE 83; RESP 18; O2SAT 99
== END 2020-01-21 02:10 | disposition home or self-care (01) ==
PROVIDERS: Emergency Provider Emergency Medicine
DX: R20.2 Paresthesia of skin (principal); F17.210 Nicotine dependence, cigarettes, uncomplicated
CPT/HCPCS: 12345; 80053; 85025; 93005; 96360; 99282; J7030

== ENCOUNTER 2020-01-25 02:51 | Emergency (ER) | payer SELFPAY ==
[2020-01-25 02:57] VITALS: BP 118/81; PULSE 88; RESP 16; TEMP 36.8; O2SAT 96; BMI 20.7
--- NOTE | 2020-01-25 04:22 | W.ED.MALEGU ---
HPI - Male Genitourinary General: Chief complaint: Urogenital-Male Stated complaint: GROIN PAIN Time Seen by Provider: 01/25/20 03:16 History of Present Illness: HPI Narrative: 19-year-old male in his second ER visit and fourth visit total for left testicle pain. He presents with left testicle pain that started tonight. He said that it hurt so badly, that his vision was blurred. It is improved currently. He has been treated recently for epididymitis with antibiotics. He states tomorrow is his last dose. He has no penile discharge. No bleeding. No mass, and no overt swelling. He had had an ultrasound last week showing no testicular mass with good blood flow. There was some question, as the left epididymis was incompletely visualized. MD Complaint: testicle pain Onset (ago): hour(s) Duration: constant Location: left testicle Severity: moderate Relieving factors: none Exacerbating factors: urination and movement Associated symptoms: Deny discharge, fevers/chills, hematuria or vomiting Review of Systems Const: Denies: fever(s) or chills Card: Denies: chest pain Resp: Denies: dyspnea GI: Denies: abdominal pain, vomiting or hematemesis : Denies: hematuria Neuro: Denies: numbness in extremities PFS ED PFSH: Family History (Updated 01/21/20 @ 09:37 by Madeline Blair LPN) Unknown Cancer Testicular Cancer Social History (Updated 01/21/20 @ 09:38 by Madeline Blair LPN) Smoking and tobacco status: former smoker Quit status (tobacco): has quit using tobacco Second hand smoke exposure: Yes Alcohol intake: never Physical Exam Const: COMMON NORMALS: no acute distress Chest: COMMONS NORMALS: normal inspection of the chest Resp: COMMON NORMALS: normal respiratory effort, No use of accessory muscles and clear to auscultation bilaterally AUSCULTATION: clear to auscultation bilaterally Cardio: COMMON NORMALS: regular rate, regular rhythm and No murmurs present (Cardio) RATE: regular rate RHYTHM: regular rhythm GI: COMMON NORMALS: Soft to palpation, non-tender and no masses PALPATION: Yes Soft to palpation : COMMON NORMALS: Yes normal external exam, Yes Testes normal, Yes scrotum normal and Yes no scrotal swelling PENIS: normal penis TESTES: Yes testicular lie normal, No testicular swelling, Yes testicular tenderness Testicular tenderness laterality: left and No testicular mass Course Vital Signs: Vital signs: Vital Signs Temperature 98.2 F 01/25/20 02:57 Pulse Rate 88 01/25/20 02:57 Respiratory Rate 16 01/25/20 02:57 Blood Pressure 118/81 01/25/20 02:57 Pulse Oximetry 96 01/25/20 02:57 MDM - Male MDM Narrative: Medical decision making narrative: This patient is seen for left testicle pain. He notes that his pain is essentially resolved at this point. He left a urine sample, but shortly thereafter decided to leave AGAINST MEDICAL ADVICE. He signed the form. He is certainly alert and oriented, and able to make those decisions for himself. Discharge Plan Discharge Patient Disposition: Left Against Medical Advice Clinical Impression: Pain in left testicle Prescriptions: No Action sertraline [Zoloft] 50 mg tablet 50 mg PO DAILY Qty: 30 RF: 3 ondansetron HCl [Zofran] 4 mg tablet 4 mg PO Q8H PRN (Reason: nausea and vomiting) Qty: 20 RF: 0 sulfamethoxazole-trimethoprim [Bactrim DS] 800-160 mg tablet 1 tab PO Q12H 7 Days Qty: 14 RF: 0 ketorolac 10 mg tablet 10 mg PO TID PRN (Reason: pain) Qty: 10 RF: 0 Discharge Date/Time: 01/25/20 03:48 Coding Level of Care Code ED Retail Field Representative for Aidan Fwd Exam Detailed
== END 2020-01-25 03:48 | disposition left against medical advice (07) ==
PROVIDERS: Emergency Provider Emergency Medicine
DX: N50.812 Left testicular pain (principal); Z87.891 Personal history of nicotine dependence
CPT/HCPCS: 12345; 99281

== ENCOUNTER 2020-01-27 03:06 | Emergency (ER) | payer SELFPAY ==
[2020-01-27 03:12] VITALS: BP 119/69; PULSE 114; RESP 18; TEMP 36.6; O2SAT 97
--- NOTE | 2020-01-27 03:28 | US_ITS ---
WS: [id number] SCROTAL ULTRASOUND EXAMINATION CLINICAL INFORMATION: testicle pain COMPARISON: January 18, 2020 FINDINGS: TESTES Normal in size and echotexture, without focal lesion. Color Doppler: Normal color Doppler flow pattern. Right testes size: 4.9 cm x 2.8 cm x 2.0 cm. Left testes size: 4.7 cm x 2.7 cm x 2.4 cm. EPIDIDYMIDES Normal in size and echotexture, without focal lesion. Color Doppler: Normal color Doppler flow pattern. Right epididymis size: 1.0 cm x cm x cm. Left epididymitis size: 1.1 cm x cm x cm. HYDROCELE None. VARICOCELE Small bilateral varicoceles. Right varicocele measures 1.4 x 1.6 cm and left varicocele measures 1.7 x 1.0 cm OTHER FINDINGS None. US/US scrotum [id number] IMPRESSION: 1. Testicles are normal in size and echotexture today. Normal vascularity. 2. Small bilateral varicoceles described above.
--- NOTE | 2020-01-27 03:29 | ED_ITS ---
HPI - Male Genitourinary General: Chief complaint: Urogenital-Male Stated complaint: swelling in groin Time Seen by Provider: 01/27/20 03:23 Source: patient Mode of arrival: ambulatory Limitations: no limitations History of Present Illness: HPI Narrative: 19-year-old male has been seen multiple times in the last 2 weeks for testicle pain. Patient states it got worse tonight. He had ultrasound 1 week ago showed a possible epididymitis. Patient's finished antibiotics. Denies any fevers. MD Complaint: testicle pain Onset (ago): day(s) Duration: constant Location: right testicle and left testicle Severity: severe Quality: sharp Relieving factors: none Exacerbating factors: none Associated symptoms: Deny nausea or vomiting Review of Systems Const: Denies: fever(s), chills, body aches or change in appetite Eyes: Denies: blurry vision or eye discomfort ENMT: Denies: throat pain or dental pain Card: Denies: chest pain Resp: Denies: dyspnea GI: Denies: abdominal pain, nausea, vomiting or diarrhea : Reports: testicular pain Musc: Denies: neck pain or back pain Skin/Breast: Denies: rash Neuro: Denies: headache(s) Psych: Denies: depression Delfino/Lymph: Denies: easy bruising All/Imm: Denies: urticaria PFSH ED PFSH: Family History Unknown Cancer Testicular Cancer Social History Smoking and tobacco status: former smoker Quit status (tobacco): has quit using tobacco Second hand smoke exposure: Yes Alcohol intake: never Physical Exam Const: COMMON NORMALS: no acute distress, patient oriented x3 and healthy appearing HENMT: COMMON NORMALS: normocephalic and atraumatic HEAD & SCALP: normocephalic and atraumatic Eye: COMMON NORMALS: Equal, round and reactive pupils present and EOMs intact bilaterally PUPIL: Yes Equal, round and reactive pupils present Neck/C-Spine: COMMON NORMALS: full ROM and supple Chest: COMMONS NORMALS: normal inspection of the chest and normal palpation of entire chest wall Resp: COMMON NORMALS: normal respiratory effort, No retractions, No use of accessory muscles and clear to auscultation bilaterally AUSCULTATION: clear to auscultation bilaterally Cardio: COMMON NORMALS: regular rate, regular rhythm and No murmurs present (Cardio) RATE: regular rate RHYTHM: regular rhythm GI: COMMON NORMALS: Normal to inspection, nondistended, normoactive bowel sounds present, Soft to palpation, non-tender and no masses PALPATION: Yes Soft to palpation : OTHER: Bilateral testicle tenderness with no obvious swelling Extremity: COMMON NORMALS: normal to inspection and full ROM Neuro: COMMON NORMALS: patient oriented x3, moves all extremities and no focal motor deficits Psych: COMMON NORMALS: mental status grossly normal, Normal thought process present and cooperative THOUGHT PROCESS: Normal thought process present Skin: COMMON NORMALS: no rashes or lesions noted and no wounds GENERAL SKIN EXAM: no rashes or lesions noted Course Vital Signs: Vital signs: Vital Signs Temperature 97.9 F 01/27/20 03:12 Pulse Rate 80 01/27/20 03:43 Respiratory Rate 16 01/27/20 03:43 Blood Pressure 140/70 01/27/20 03:43 Pulse Oximetry 97 01/27/20 03:43 MDM - Male MDM Narrative: Medical decision making narrative: Patient presents with testicle pain that is been chronic in nature. Patient appears to have anxiety as well. He is well-appearing here and has no signs of torsion. Patient is stable for discharge and return if worsening. He is to follow-up with PCP in 3 to 5 days Imaging Data: US: Attestation: I personally reviewed and interpreted this imaging study as follows: Radiologist's impression: No acute abnormality Discharge Plan Discharge Patient Disposition: Home Clinical Impression: Pain in both testicles Condition: Stable Prescriptions: No Action sertraline [Zoloft] 50 mg tablet 50 mg PO DAILY Qty: 30 RF: 3 ondansetron HCl [Zofran] 4 mg tablet 4 mg PO Q8H PRN (Reason: nausea and vomiting) Qty: 20 RF: 0 sulfamethoxazole-trimethoprim [Bactrim DS] 800-160 mg tablet 1 tab PO Q12H 7 Days Qty: 14 RF: 0 ketorolac 10 mg tablet 10 mg PO TID PRN (Reason: pain) Qty: 10 RF: 0 Discharge Orders: Discharge Order (Routine); Ordered 01/27/20 Ordered By: Korby Lisa Discharge Diet: Advance as tolerated Discharge Activity: Resume usual activity Patient Instructions: Testicle Pain (ED) Coding Level of Care Code ED Receivable Executive for Suzanneg Fwd Exam Comprehensive
[2020-01-27 03:43] VITALS: BP 140/70; PULSE 80; RESP 16; O2SAT 97
== END 2020-01-27 05:04 | disposition home or self-care (01) ==
PROVIDERS: Emergency Provider Emergency Medicine
DX: N50.812 Left testicular pain (principal); N50.811 Right testicular pain; Z87.891 Personal history of nicotine dependence
CPT/HCPCS: 12345; 76870; 99281; 99282

== ENCOUNTER → 2020-03-13 16:22 | Outpatient (BNVA) | payer SELFPAY | PROVIDERS: Visit Provider Nurse Practitioner Family | DX: R30.0 Dysuria (principal); R82.90 Unspecified abnormal findings in urine | CPT/HCPCS: 81000; 87086; 87491; 87591 ==

== ENCOUNTER → 2020-04-04 15:30 | Outpatient (BNVA) | payer SELFPAY | PROVIDERS: Visit Provider Nurse Practitioner Family | DX: R30.0 Dysuria (principal) | CPT/HCPCS: 81000 ==

== ENCOUNTER 2020-04-16 14:18 | Emergency (ER) | payer SELFPAY ==
[2020-04-16 14:21] VITALS: BP 133/71; PULSE 91; RESP 17; TEMP 36.2; BMI 21.4
--- NOTE | 2020-04-16 15:02 | W.ED.ANXIETY ---
HPI - Anxiety General: Chief Complaint: Anxiety Stated Complaint: Pill stuck in throat Time Seen by Provider: 04/16/20 14:22 Source: patient Mode of arrival: ambulatory Limitations: no limitations History of Present Illness: HPI narrative: Patient states that he took an antibiotic capsule and it has been stuck in his throat ever since. He said he does not stop there for about a day. He is still able to eat and drink and they both passed down but he feels the pill is stuck there. No nausea or vomiting, no difficulty breathing. Associated symptoms: Deny chills, fever(s), headache(s), nausea, palpitations or vomiting Review of Systems General: Reports: 10 or more systems reviewed and unremarkable except in HPI and below Const: Denies: fever(s), chills or body aches Eyes: Denies: change in vision or blurry vision ENMT: Denies: throat pain, enlarged tonsils, odynophagia, hoarseness, mouth pain or swelling of lips/tongue Card: Denies: palpitations, irregular heart rhythm, edema or swelling of feet/ankles Resp: Denies: dyspnea, productive cough or non-productive cough GI: Denies: abdominal pain, nausea or vomiting : Denies: flank pain, dysuria, urinary frequency, urinary urgency or urinary hesitancy Musc: Denies: neck pain, back pain or extremity swelling Skin/Breast: Denies: rash, pruritus or erythema Neuro: Denies: headache(s), numbness in extremities or weakness in extremities Endo: Denies: polyuria, polydipsia or tired all the time PFS ED PFSH: Medical History (Reviewed 04/16/20 @ 15:10 by Aidan Sanchez MD, [facility] [place]) Epididymitis Varicocele present on ultrasound of scrotum Family History (Reviewed 04/16/20 @ 15:10 by Aidan Sanchez MD, [facility] [place]) Unknown Cancer Testicular Cancer Social History (Reviewed 04/16/20 @ 15:10 by Aidan Sanchez MD, [facility] [place]) Smoking and tobacco status: current every day smoker Quit status (tobacco): has quit using tobacco Second hand smoke exposure: Yes Alcohol intake: never Marital status: Single Current occupational status: employed Current occupation: [employer] History of recent travel: No Physical Exam Const: COMMON NORMALS: no acute distress, average body habitus, patient oriented x3, no limitations, healthy appearing, alert and well nourished HENMT: COMMON NORMALS: normocephalic, atraumatic and moist oral mucous membranes HEAD & SCALP: normocephalic and atraumatic Eye: COMMON NORMALS: Equal, round and reactive pupils present, EOMs intact bilaterally, conjunctivae normal and no scleral icterus CONJUNCTIVA: Yes conjunctivae normal PUPIL: Yes Equal, round and reactive pupils present Neck/C-Spine: COMMON NORMALS: full ROM, supple, no meningeal signs, no JVD and No carotid bruits Resp: COMMON NORMALS: normal respiratory effort, No retractions, No use of accessory muscles, clear to auscultation bilaterally and percussion normal AUSCULTATION: clear to auscultation bilaterally PERCUSSION: percussion normal Cardio: COMMON NORMALS: no JVD, regular rate, regular rhythm, S1 normal heart sound present, S2 normal heart sound present, No gallops present (Cardio), No clicks present (Cardio), No murmurs present (Cardio), No rub (Cardio) and Peripheral pulses 2+ throughout RATE: regular rate RHYTHM: regular rhythm HEART SOUNDS: S1 normal heart sound present and S2 normal heart sound present PERIPHERAL PULSES: Peripheral pulses 2+ throughout GI: COMMON NORMALS: Normal to inspection, nondistended, normoactive bowel sounds present, Soft to palpation, non-tender, No hepatosplenomegaly present, no masses and no bruits PALPATION: Yes Soft to palpation and Yes No hepatosplenomegaly present Extremity: COMMON NORMALS: normal to inspection, full ROM, capillary refill normal, no calf tenderness and no pedal edema Neuro: COMMON NORMALS: patient oriented x3 SENSORIUM/ORIENTATION: Yes alert MENINGEAL SIGNS: Yes no meningeal signs Skin: COMMON NORMALS: no rashes or lesions noted, no wounds, turgor normal, no jaundice, no petechiae and no mottling GENERAL SKIN EXAM: no rashes or lesions noted and turgor normal Course Vital Signs: Vital signs: Vital Signs Temperature 97.2 F L 04/16/20 14:21 Pulse Rate 91 04/16/20 14:21 Respiratory Rate 17 04/16/20 14:21 Blood Pressure 133/71 04/16/20 14:21 MDM - Anxiety MDM Narrative: Medical decision making narrative: Patient with foreign body sensation in his esophagus. He states that he had a pill that has been stuck there for a day. Patient apparently absconded from the emergency department at 1503 hrs before imaging or medications could be done. Discharge Plan Discharge Patient Disposition: Left Against Medical Advice Clinical Impression: Sensation of foreign body in esophagus Prescriptions: No Action doxycycline hyclate 100 mg tablet 100 mg PO BID Qty: 40 RF: 0 tramadol 50 mg tablet 50 mg PO TID PRN (Reason: pain, moderate) 15 Days Qty: 45 RF: 0 ciprofloxacin HCl 500 mg tablet 500 mg PO BID Qty: 30 RF: 0 Referrals: Ehsan Hassan MD [Primary Care Provider] - Coding Level of Care Code ED [employer] Faculty Member for Aidan Russell
--- NOTE | 2020-04-16 15:06 | PC.NURSE ---
Patient noted to have left facility at 1503. This nurse had not assessed patient or performed any interventions.
== END 2020-04-16 15:03 | disposition left against medical advice (07) ==
LOC: ER 14:32
PROVIDERS: Emergency Provider Family Medicine; PCP Family Medicine Adult Medicine
DX: R09.89 Other specified symptoms and signs involving the circulatory and respiratory systems (principal); F17.210 Nicotine dependence, cigarettes, uncomplicated; Z53.21 Procedure and treatment not carried out due to patient leaving prior to being seen by health care provider
CPT/HCPCS: 12345; 99281

== ENCOUNTER → 2020-05-03 12:59 | Outpatient (BNVA) | payer SELFPAY | PROVIDERS: PCP Family Medicine Adult Medicine; Visit Provider Urology | DX: N45.1 Epididymitis (principal); N30.80 Other cystitis without hematuria | CPT/HCPCS: 81003 ==

== ENCOUNTER 2020-05-28 23:56 | Emergency (ER) | payer SELFPAY ==
[2020-05-29] VITALS: BP 139/83; PULSE 76; RESP 16; TEMP 36.8; O2SAT 97; BMI 20.7
--- NOTE | 2020-05-29 | USR_ITS ---
PROCEDURE INFORMATION: Exam: US Scrotum Exam date and time: 05/29/2020 12:51 AM Age: 20 years old Clinical indication: Scrotum pain; Additional info: Testicular pain TECHNIQUE: Imaging protocol: Real-time ultrasound of the scrotum and contents with color Doppler and image documentation. COMPARISON: US scrotum [id number] 01/27/2020 4:11 AM FINDINGS: The testicles are within normal limits and relatively symmetrical in size. Right: The right testicle measures 48 x 28 x 30 mm. No visible intratesticular mass. Duplex Doppler evaluation, with color flow and spectral waveform analysis, demonstrates intratesticular arterial and venous blood flow. Possible very small cyst or spermatocele in the head of the right epididymis. The right epididymis otherwise appears essentially unremarkable in size and appearance. There is no significant right scrotal fluid. Left: No visible intratesticular mass. The left testicle measures 48 x 27 x 28 mm. Duplex Doppler evaluation, with color flow and spectral waveform analysis, demonstrates intratesticular arterial and venous blood flow. Possible very small cyst or spermatocele in the head of the left epididymis. The left epididymis otherwise appears essentially unremarkable in size and appearance. There is no significant left scrotal fluid. US/US scrotum [id number] IMPRESSION: 1. No evidence for torsion by Doppler ultrasound. 2. No findings to suggest epididymitis. 3. Other details discussed above.
[2020-05-29] MEDS: acetaminophen 500 mg Tablet 1000 MG PO (00:15)
--- NOTE | 2020-05-29 00:31 | W.ED.MALEGU ---
HPI - Male Genitourinary General: Chief complaint: Urogenital-Male Stated complaint: swollen cords in tesitcles, hurting really bad Time Seen by Provider: 05/29/20 00:00 Source: patient Mode of arrival: ambulatory Limitations: no limitations History of Present Illness: HPI Narrative: 20 year old male presents to the ED with complaints of testicular pain. He has history of epididymitis, has been under the care of Dr. Bob, previous urology exam 05/03/2020. He reports 2-week history of dysuria and testicular pain. He states pain he is experiencing today is much worse. He is complaining of being hungry upon exam, denies nausea vomiting diarrhea fever or chills. He denies abdominal pain. He also denies sexual exposure to STDs. MD Complaint: testicle pain, testicle swelling and dysuria Onset (ago): week(s) (2) Duration: intermittent and progressively worsening Location: right testicle and left testicle Severity: moderate Quality: aching and sharp Associated symptoms: Reports no associated symptoms; Deny dysuria, hematuria, nausea or vomiting Review of Systems General: Reports: 10 or more systems reviewed and unremarkable except in HPI and below Const: Denies: fever(s), chills, body aches, fatigue, malaise or diaphoresis Eyes: Denies: blurry vision or eye redness ENMT: Denies: throat pain, dental pain or disequilibrium Card: Denies: chest pain, palpitations or irregular heart rhythm Resp: Denies: dyspnea, productive cough, non-productive cough or wheezing GI: Denies: abdominal pain, nausea or vomiting : Reports: difficulty urinating, urinary urgency, genital pain, testicular pain and scrotal swelling; Denies: dysuria, hematuria, genital lesions, penile discharge or testicular mass Musc: Denies: neck pain, back pain, joint pain, joint warmth, joint stiffness, muscle cramps or muscle weakness Skin/Breast: Denies: rash or pruritus Neuro: Denies: headache(s), weakness in extremities or behavioral changes Psych: Denies: anxiety, depression, mood swings, hopelessness or change in appetite Delfino/Lymph: Denies: easy bruising PFSH ED PFSH: Medical History Epididymitis Varicocele present on ultrasound of scrotum Family History Unknown Cancer Testicular Cancer Social History Smoking and tobacco status: current every day smoker Quit status (tobacco): has quit using tobacco Second hand smoke exposure: Yes Alcohol intake: never Marital status: Single Current occupational status: employed Current occupation: [employer] History of recent travel: No Physical Exam Const: COMMON NORMALS: no acute distress, patient oriented x3, healthy appearing and alert GENERAL APPEARANCE: cooperative, comfortable and well hydrated HENMT: COMMON NORMALS: normocephalic, Normal external nose present and moist oral mucous membranes HEAD & SCALP: normocephalic NOSE: Normal external nose present Eye: COMMON NORMALS: Equal, round and reactive pupils present and EOMs intact bilaterally GENERAL EYE: appearance normal, both eyes and all related structures PUPIL: Yes Equal, round and reactive pupils present Neck/C-Spine: COMMON NORMALS: full ROM and no lymphadenopathy GENERAL: Yes normal visual inspection and Yes trachea midline CERVICAL SPINE: Yes cervical ROM normal Lymph: LYMPHATIC: no lymphadenopathy noted Chest: COMMONS NORMALS: normal inspection of the chest Resp: COMMON NORMALS: normal respiratory effort and clear to auscultation bilaterally AUSCULTATION: clear to auscultation bilaterally Cardio: COMMON NORMALS: regular rhythm, S1 normal heart sound present and S2 normal heart sound present RHYTHM: regular rhythm HEART SOUNDS: S1 normal heart sound present and S2 normal heart sound present GI: COMMON NORMALS: Soft to palpation and non-tender INSPECTION: Yes normal to inspection PALPATION: Yes Soft to palpation : COMMON NORMALS: Yes no CVA tenderness, Yes normal external exam and Yes No hernias present BLADDER/KIDNEY EXAM: Yes bladder normal to palpation and Yes no CVA tenderness MALE GROIN/PERINEUM EXAM: No inguinal lymphadenopathy PENIS: normal penis and circumcised MEATUS: meatus normal, no meatla discharge and No Blood at meatus present SCROTUM: Yes testes descended bilaterally, Yes Cremasteric reflex present and Yes scrotal swelling TESTES: Yes testicular lie normal, Yes testicular swelling, Yes testicular tenderness, Yes epididymal induration and Yes epididymal tenderness Back/Pelvis: COMMON NORMALS: no CVA tenderness and thoracic and lumbar spine normal to inspection Extremity: COMMON NORMALS: normal to inspection and capillary refill normal Neuro: COMMON NORMALS: patient oriented x3 and no focal motor deficits SENSORIUM/ORIENTATION: Yes alert Psych: COMMON NORMALS: mental status grossly normal, Normal thought process present and cooperative ACTIVITY/MOTOR BEHAVIOR: Yes appropriate eye contact THOUGHT PROCESS: Normal thought process present Skin: COMMON NORMALS: no rashes or lesions noted and turgor normal GENERAL SKIN EXAM: no rashes or lesions noted and turgor normal Course Vital Signs: Vital signs: Vital Signs Temperature 98.2 F 05/29/20 00:00 Pulse Rate 76 05/29/20 00:00 Respiratory Rate 16 05/29/20 00:00 Blood Pressure 139/83 05/29/20 00:00 Pulse Oximetry 97 05/29/20 00:00 MDM - Male Lab Data: Labs: Lab Results 05/29/20 Range/Units 00:31 Urine Color Yellow (Yellow) Urine Appearance Sl cloudy A (CLEAR) Urine pH 8 H (5-7) Ur Specific Gravit y 1.015 (1.005-1.030) Urine Protein Neg (Negative) Urine Glucose (UA) Norm (Normal) Urine Ketones Negative (Negative) Urine Blood Neg (Negative) Urine Nitrate Negative (Negative) Urine Bilirubin Neg (Negative) Prot Sulfosalicyli c Acd Negative (Negative) Urine Urobilinogen Norm (Negative) mg/dL Ur Leukocyte Stefania ase Negative (Negative) Urine RBC 0-4 H (0-2) /hpf Urine WBC 0-4 H (0-5) /hpf Ur Squamous Epith Cells 0-4 H (0-5) /hpf Amorphous Sediment 2+ /hpf Urine Bacteria Trace (NONE) /hpf Imaging Data: Other Imaging: Radiologist's impression: [address] [address] Ultrasound Report Signed Patient: Santiago Vera Unit #: [id number] : 2000 Age/Sex: 20 / M ADM Date: 05/28/20 Loc: ER Room/Bed: Attending Dr: Ordering Provider/Ordering MD: Hilary Zarate Date of Service: 05/29/20 Procedure(s): US scrotum [id number] Accession Number(s): [id number] Report Number: [id number] PROCEDURE INFORMATION: Exam: US Scrotum Exam date and time: 05/29/2020 12:51 AM Age: 20 years old Clinical indication: Scrotum pain; Additional info: Testicular pain TECHNIQUE: Imaging protocol: Real-time ultrasound of the scrotum and contents with color Doppler and image documentation. COMPARISON: US scrotum [id number] 01/27/2020 4:11 AM FINDINGS: The testicles are within normal limits and relatively symmetrical in size. Right: The right testicle measures 48 x 28 x 30 mm. No visible intratesticular mass. Duplex Doppler evaluation, with color flow and spectral waveform analysis, demonstrates intratesticular arterial and venous blood flow. Possible very small cyst or spermatocele in the head of the right epididymis. The right epididymis otherwise appears essentially unremarkable in size and appearance. There is no significant right scrotal fluid. Left: No visible intratesticular mass. The left testicle measures 48 x 27 x 28 mm. Duplex Doppler evaluation, with color flow and spectral waveform analysis, demonstrates intratesticular arterial and venous blood flow. Possible very small cyst or spermatocele in the head of the left epididymis. The left epididymis otherwise appears essentially unremarkable in size and appearance. There is no significant left scrotal fluid. US/US scrotum [id number] IMPRESSION: 1. No evidence for torsion by Doppler ultrasound. 2. No findings to suggest epididymitis. 3. Other details discussed above. Dictated By: Sathya Nguyen MD Signed By: Sathya Nguyen MD Signed Date/Time: 05/29/20105 DD/ 3 Discharge Plan Discharge Patient Disposition: Home Clinical Impression: Epididymitis, Testicular/scrotal pain Condition: Stable Prescriptions: New doxycycline hyclate 100 mg capsule 100 mg PO BID 10 Days Qty: 20 RF: 0 No Action ciprofloxacin HCl 500 mg tablet 500 mg PO BID Qty: 42 RF: 1 doxycycline hyclate 100 mg tablet 100 mg PO BID Qty: 60 RF: 4 Discharge Orders: Discharge ED (Routine); Ordered 05/29/20 Ordered By: Hilary Zarate Referrals: Ehsan Hassan MD [Primary Care Provider] - Discharge Diet: Usual diet Discharge Activity: Limit activity as instructed Patient Instructions: Sexually Transmitted Diseases (ED), Epididymitis (ED), Testicle Pain (ED) Activity Restrictions/Additional Instructions: Avoid sexual activity until follow-up with your primary care, follow-up 2 weeks Return to the ED if you experience worsening symptoms such as inability to uinate, fever, abdominal pain or other concerning symptoms Drink lots of fluids take doxycycline until all gone - even if better Coding Level of Care Code ED Wardrobe Image Consultant for Aidan Fwd Exam Comprehensive
[2020-05-29 00:49] LABS: Add Urine Microscopic? YES; Bilirubin Urine Neg (Negative); Blood Urine Neg (Negative); Glucose Urine UA Norm (Normal); Ketones Urine Negative (Negative); Leukocyte Esterase Urine Negative (Negative); Nitrate Urine Negative (Negative); Protein Urine Neg (Negative); Specific Gravity, Urine 1.015 (1.005-1.030); Sulfosalicylic Acid Urine Negative (Negative); Urine Color Yellow (Yellow); Urobilinogen Urine Norm (Negative); pH Urine 8 (5-7)
[2020-05-29 00:50] LABS: Add Urine Culture? No; Amorphous Sediment Urine 2+ /hpf; Bacteria Urine TRACE /hpf; RBC Urine 0-4 /hpf (0-2); Squamous Epithelial Cell Urine 0-4 /hpf (0-5); WBC Urine 0-4 /hpf (0-5)
--- NOTE | 2020-05-29 02:00 | PC.NURSE ---
Went to discharge pt and give him 1 100mg Doxycycline and 1gram Ceftriaxone IM. Pt had eloped from ED.
--- NOTE | 2020-05-30 11:21 | DCPLANNER ---
assistant housekeeping manager had message to schedule a follow up appointment for patient with Dr. Bob. assistant housekeeping manager called the office of Dr. Bob, spoke with Kala, gave clinic patients information. assistant housekeeping manager was told that patients information would be printed and reviewed. Clinic will call patient with appointment information.
--- NOTE | 2020-05-31 07:46 | DCPLANNER ---
Patient has a follow up appointment scheduled for Sunday, June 07, 2020 at 11:[address] Bob. Clinic will call patient with appointment information.
--- NOTE | 2020-07-01 14:48 | DCPLANNER ---
Patient had a follow up appointment scheduled fo 06.07.[address] Bob - patient did attend appointment.
== END 2020-05-29 02:21 | disposition home or self-care (01) ==
PROVIDERS: Emergency Provider Nurse Practitioner Family; PCP Family Medicine Adult Medicine
DX: N45.1 Epididymitis (principal); F17.210 Nicotine dependence, cigarettes, uncomplicated
CPT/HCPCS: 12345; 76870; 81001; 87491; 87591; 99281; 99283

== ENCOUNTER → 2020-07-23 11:32 | Outpatient (BNVA) | payer SELFPAY | PROVIDERS: PCP Family Medicine Adult Medicine; Visit Provider Nurse Practitioner Family | DX: J02.9 Acute pharyngitis, unspecified (principal); K21.9 Gastro-esophageal reflux disease without esophagitis | CPT/HCPCS: 87071; 87880 ==

== ENCOUNTER → 2021-11-03 13:37 | Outpatient (BNVA) | payer SELFPAY | PROVIDERS: PCP Family Medicine Adult Medicine; Visit Provider Family Medicine Adult Medicine | DX: N39.0 Urinary tract infection, site not specified (principal); F41.1 Generalized anxiety disorder; F41.0 Panic disorder [episodic paroxysmal anxiety] | CPT/HCPCS: 81000 ==

== ENCOUNTER 2023-11-06 08:53 | Emergency (ER) | payer SELFPAY ==
[2023-11-06 09:57] VITALS: BP 131/70; PULSE 71; RESP 18; TEMP 36.8; O2SAT 99; BMI 29.5
[2023-11-06 12:29] VITALS: BP 111/78; PULSE 68; RESP 18; O2SAT 97
--- NOTE | 2023-11-06 12:36 | XR_ITS ---
WS: [id number] Exam: XR KUB portable [id number] Date/Time of Exam: 11/06/2023 12:38 PM Reason For Exam: constipation Comparison 02/09/2009. No bowel obstruction or pneumoperitoneum. No sign of organ enlargement. Average amount of stool in th e large bowel. No sign of constipation or fecal impaction. Bony structures appear normal. XR/XR KUB portable [id number] IMPRESSION: 1. No acute abdominal finding. Average amount of stool in the large bowel.
--- NOTE | 2023-11-06 13:07 | ED_ITS ---
HPI - Abdominal Pain 2 General: Chief Complaint: General Medical Stated Complaint: constipation, abd pain, vomitting Time Seen by Provider: 11/06/23 12:34 Source: patient Mode of arrival: ambulatory Limitations: no limitations History of Present Illness: Patient is a 23-year-old male who presents to the ED today stating my bowels have not been right in over 6 months . He feels like he is not getting full evacuations of his bowel. He feels like things are starting to get backed up . He is concerned he could have Ulcerative Colitis or Crohn's disease. Patient seems very anxious. He states he is not having abdominal pain. He has never had bloody stools. No systemic symptoms. He does state his diet is poor stating he mostly eats processed frozen foods . He states he does have a longstanding history of acid reflux. Used to be on omeprazole for this but feels like it stopped working so discontinued 2 to 3 weeks ago. MD elicited complaint: abdominal pain Pertinent past history: none Onset (ago): month(s) Location: None Radiation: none Migration to: no migration Exacerbating factors: nothing Relieving factors: nothing Associated Symptoms: Reports heartburn and vomiting (x 1 today); Denies chills, GI cramping, fever(s), hematochezia, hematemesis and melena Review of Systems 2 Const: Denies: fever(s), chills, body aches, fatigue or malaise Card: Denies: chest pain Resp: Denies: dyspnea GI: Reports: vomiting (x 1 today) and heartburn; Denies: abdominal pain, hematemesis, GI cramping, hematochezia or melena : Denies: flank pain Musc: Denies: back pain Skin/Breast: Denies: rash Neuro: Denies: headache(s) or dizziness PFSH ED 2 PFSH: Medical History Gastroenteritis Allergic rhinitis due to allergen Pharyngitis GERD (gastroesophageal reflux disease) Chronic epididymitis Testicular/scrotal pain Varicocele present on ultrasound of scrotum Family History Unknown Cancer Testicular Cancer Social History Smoking and tobacco/nicotine status: current every day tobacco/nicotine user Quit status (tobacco/nicotine): has quit using Second hand smoke exposure: Yes Alcohol intake: never Substance/Drug Use: current Substance/Drug use frequency: few times a week Marital status: Single Current occupational status: employed Current occupation: [employer] Physical Exam 2 Const: COMMON NORMALS: no acute distress, average body habitus, patient oriented x3, no limitations, healthy appearing, alert and well nourished G ENERAL APPEARANCE: cooperative ORIENTATION/CONSCIOUSNESS: Yes awake, Yes oriented to person, Yes oriented to place and Yes oriented to time HENMT: COMMON NORMALS: normocephalic and atraumatic HEAD & SCALP: normal to inspection, normocephalic and atraumatic Eye: COMMON NORMALS: no scleral icterus Chest: COMMONS NORMALS: normal inspection of the chest and normal palpation of entire chest wall Resp: COMMON NORMALS: normal respiratory effort and clear to auscultation bilaterally AUSCULTATION: clear to auscultation bilaterally Cardio: COMMON NORMALS: regular rate and regular rhythm RATE: regular rate RHYTHM: regular rhythm GI: COMMON NORMALS: Normal to inspection, nondistended, normoactive bowel sounds present, Soft to palpation, non-tender, No hepatosplenomegaly present and no masses INSPECTION: Yes normal to inspection AUSCULTATION: Yes normoactive bowel sounds PALPATION: Yes Soft to palpation and Yes No hepatosplenomegaly present : COMMON NORMALS: Yes no CVA tenderness BLADDER/KIDNEY EXAM: Yes no CVA tenderness Back/Pelvis: COMMON NORMALS: no CVA tenderness Extremity: GENERAL: Yes normal exam except as noted Neuro: COMMON NORMALS: patient oriented x3, moves all extremities, no focal motor deficits and no sensory deficits noted SENSORIUM/ORIENTATION: Yes alert, Yes oriented to person, Yes oriented to place and Yes oriented to time Skin: COMMON NORMALS: no rashes or lesions noted GENERAL SKIN EXAM: no rashes or lesions noted Course 2 Vital Signs: Vital signs: Vital Signs Temperature 98.3 F 11/06/23 09:57 Pulse Rate 68 11/06/23 12:29 Respiratory Rate 18 11/06/23 12:29 Blood Pressure 111/78 11/06/23 12:29 Pulse Oximetry 97 11/06/23 12:29 Oxygen Delivery Me thod Room Air 11/06/23 09:57 MDM - Abdominal Pain Medical Decision Making Patient's history and physical exam is nonconcerning for anything life- threatening at this time. He is not complaining of any abdominal pain. His abdomen is soft and nontender on exam. He is in no acute distress with stable vital signs. His XR showing no obstructive pattern. Blood work is unremarkable. I do not have any concern for inflammatory bowel disease based on his history. Suspect possible constipation dependent IBS versus gluten intolerance versus overall poor diet consisting mainly of processed frozen foods. At this time patient is stable for discharge from an emergency standpoint can follow-up with his primary care provider. Differential Diagnosis Likely abdominal pain, constipation, diverticulitis, gastroenteritis and small bowel obstruction Medical Records I reviewed the patient's medical records. Lab Data I reviewed the patient's lab results. 11/06/23 12:56 11/06/23 12:56 Labs/Radiology: Radiology Impressions KUB X-Ray 11/06/23 12:36 IMPRESSION: 1. No acute abdominal finding. Average amount of stool in the large bowel. Laboratory Results WBC 7.30 10^3/uL (3.29-11.43) 11/06/23 12:56 RBC 5.79 10^6/uL (3.85-5.65) H 11/06/23 12:56 Hgb 16.40 g/dL (11.27-16.99) 11/06/23 12:56 Hct 49.1 % (37-53) 11/06/23 12:56 MCV 84.8 fl (82-101) 11/06/23 12:56 MCH 28.3 pg (27-33) 11/06/23 12:56 MCHC 33.4 g/dL (30-55) 11/06/23 12:56 RDW 13.4 % (12.1-15.1) 11/06/23 12:56 Plt Count 301 10^3/cmm (157-399) 11/06/23 12:56 MPV 9.2 fL (7.4-10.4) 11/06/23 12:56 Neut % (Auto) 72.7 % 11/06/23 12:56 Lymph % (Auto) 18.8 % 11/06/23 12:56 [place] % (Auto) 6.7 % 11/06/23 12:56 Eos % (Auto) 0.7 % 11/06/23 12:56 Baso % (Auto) 1.0 % 11/06/23 12:56 Neut # (Auto) 5.31 10^3/uL (1.8-7.7) 11/06/23 12:56 Lymph # (Auto) 1.4 10^3/uL (0.8-4.8) 11/06/23 12:56 [place] # (Auto) 0.5 10^3/uL (0.2-0.9) 11/06/23 12:56 Eos # (Auto) 0.1 10^3/uL (0.0-0.8) 11/06/23 12:56 Baso # (Auto) 0.1 10^3/uL (0.0-0.1) 11/06/23 12:56 Nucleated RBC % (auto) 0 % 11/06/23 12:56 Nucleated RBCs # 0.0 /100WBC 11/06/23 12:56 Sodium 141 mmol/L (136-145) 11/06/23 12:56 Potassium 3.8 mmol/L (3.5-5.1) 11/06/23 12:56 Chloride 106 mmol/L (98-107) 11/06/23 12:56 Anion Gap 18.8 (5-19) 11/06/23 12:56 BUN 11 mg/dL (6-20) 11/06/23 12:56 Creatinine 0.7 mg/dL (0.7-1.2) 11/06/23 12:56 Glucose 87 mg/dL (65-115) 11/06/23 12:56 Calculated Osmolality 291 mOsm/kg (285-295) 11/06/23 12:56 Calcium 9.2 mg/dL (8.5-10.5) 11/06/23 12:56 Total Bilirubin 0.6 mg/dL (0.15-1.2) 11/06/23 12:56 AST 17 U/L (0-40) 11/06/23 12:56 ALT 16 U/L (0-41) 11/06/23 12:56 Alkaline Phosphatase 117 U/L (40-130) 11/06/23 12:56 Total Protein 7.3 g/dL (6.6-8.7) 11/06/23 12:56 Albumin 4.7 g/dL (3.5-5.2) 11/06/23 12:56 Globulin 2.6 g/dL (1.3-4.6) 11/06/23 12:56 Lipase 16 U/L (13-60) 11/06/23 12:56 All radiology interpretation(s) finalized by discharge Discharge Plan Discharge Patient Disposition: Home Clinical Impression: Constipation Qualifiers: Constipation type: other constipation type Qualified Code(s): K59.09 - Other constipation Condition: Stable Prescriptions: No Action No Known Home Medications Discharge Orders: Discharge ED (Routine); Ordered 11/06/23 Ordered By: Maris De La Paz Referrals: Ehsan Hassan MD [Primary Care Provider] - Activity Restrictions/Additional Instructions: As we discussed from the emergency department we are here to rule out life- threatening etiology. Your blood work today was completely unremarkable. X-ray of your abdomen did not show any obstructive pattern but did show an average amount of stool in your colon. As we discussed I would like you to increase your fiber in your diet is much as possible. We also discussed using a fiber supplement such as Metamucil and occasional MiraLAX to see if this helps fully alleviate your bowels. As we discussed I would like you to follow-up with your primary care provider. Coding Level of Care Code ED Sample Shoe Inspector And Reworker for Aidan Russell
[2023-11-06 13:09] LABS: Basophils # 0.1 10^3/uL (0.0-0.1); Eosinophils # 0.1 10^3/uL (0.0-0.8); Eosinophils % 0.7 %; Hematocrit 49.1 % (37-53); Lymphocytes # 1.4 10^3/uL (0.8-4.8); Lymphocytes % 18.8 %; Mean Corpuscular HGB Conc 33.4 g/dL (30-55); Mean Corpuscular Hemoglobin 28.3 pg (27-33); Mean Corpuscular Volume 84.8 fl (82-101); Mean Platelet Volume 9.2 fL (7.4-10.4); Monocytes # 0.5 10^3/uL (0.2-0.9); Monocytes % 6.7 %; Neutrophils # 5.31 10^3/uL (1.8-7.7); Neutrophils % 72.7 %; Nucleated Red Blood Cells % 0 %; Platelet Count 301 10^3/cmm (157-399); Red Blood Count 5.79 10^6/uL (3.85-5.65); Red Cell Distribution Width 13.4 % (12.1-15.1)
[2023-11-06 13:33] LABS: Alanine Aminotransferase 16 U/L (0-41); Albumin Level 4.7 g/dL (3.5-5.2); Alkaline Phosphatase 117 U/L (40-130); Anion Gap 18.8 (5-19); Aspartate Amino Transferase 17 U/L (0-40); Blood Urea Nitrogen 11 mg/dL (6-20); Calcium 9.2 mg/dL (8.5-10.5); Carbon Dioxide 20 mmol/L (22-29); Chloride 106 mmol/L (98-107); Creatinine Clr Calc Pharmacy 181.1515; Globulin 2.6 g/dL (1.3-4.6); Glomerular Filtration Rate 138.6 mL/min (90-130); Glucose 87 mg/dL (65-115); Lipase 16 U/L (13-60); Osmolality Calculated 291 mOsm/kg (285-295); Potassium 3.8 mmol/L (3.5-5.1); Sodium 141 mmol/L (136-145); Total Bilirubin 0.6 mg/dL (0.15-1.2); Total Protein 7.3 g/dL (6.6-8.7)
[2023-11-06 13:52] VITALS: BP 143/95; PULSE 54; RESP 14; O2SAT 99
== END 2023-11-06 13:53 | disposition home or self-care (01) ==
PROVIDERS: Emergency Medicine; Emergency Provider Physician Assistant; PCP Family Medicine Adult Medicine
DX: K59.09 Other constipation (principal); Z72.0 Tobacco use
CPT/HCPCS: 74018; 80053; 83690; 85025; 99284

== ENCOUNTER 2024-09-10 06:18 | Emergency (ER) | payer SELFPAY ==
[2024-09-10 06:21] VITALS: BP 140/73; PULSE 83; RESP 18; TEMP 36.5; O2SAT 98; BMI 25.8
--- NOTE | 2024-09-10 06:29 | XR_ITS ---
WS: [id number] Exam: XR knee LT 3V* [id number] Date/Time of Exam: 09/10/2024 6:57 AM Reason For Exam: trauma No fracture noted. The joint compartments are preserved. Prominent effusion in the suprapatellar bursa. Soft tissues are otherwise normal. XR/XR knee LT 3V* [id number] IMPRESSION: 1. Joint effusion. No fracture.
--- NOTE | 2024-09-10 06:29 | W.ED.EXTPRO ---
HPI - Extremity Problem General: Chief complaint: Extremity Injury, Lower Stated complaint: L knee injury Time Seen by Provider: 09/10/24 06:29 History of Present Illness: 24-year-old male presents to the emergency room with left knee pain. He is participating in some role playing activity using foam swords felt a popping sensation Mayme describes having heard it. He has not been able to bear weight on the knee. He has difficult time even bending his knee while laying down. He has noticed significant swelling along with the pain. No other injury. Related Data Home Medications ?Medication ?Instructions ?Recorded ?Confirmed acetaminophen 325 mg tablet 325 mg PO QID 09/10/24 09/10/24 Previous Rx's ?Medication ?Instructions ?Recorded diclofenac sodium 75 mg 75 mg PO Q12H PRN pain #20 tabs 09/10/24 tablet,delayed release Allergies Allergy/AdvReac Type Severity Reaction Status Date / Time No Known Allergies Allergy Verified 08/20/24 18:21 Review of Systems Musc: Reports: joint pain and joint swelling [facility] ED PFSH: Medical History Gastroenteritis Allergic rhinitis due to allergen Pharyngitis GERD (gastroesophageal reflux disease) Chronic epididymitis Testicular/scrotal pain Varicocele present on ultrasound of scrotum Family History Unknown Cancer Testicular Cancer Social History Smoking and tobacco/nicotine status: current every day tobacco/nicotine user Quit status (tobacco/nicotine): has quit using Second hand smoke exposure: Yes Alcohol intake: never Substance/Drug Use: current Substance/Drug use frequency: few times a week Marital status: Single Current occupational status: employed Current occupation: [email or web address] Physical Exam Const: COMMON NORMALS: no acute distress GENERAL APPEARANCE: cooperative and comfortable ORIENTATION/CONSCIOUSNESS: Yes awake, Yes oriented to person, Yes oriented to place and Yes oriented to time HENMT: COMMON NORMALS: normocephalic, atraumatic and hearing grossly normal bilaterally HEAD & SCALP: normocephalic and atraumatic Extremity: OTHER: Examination of the knee moderate swelling warm to the touch no erythema no lacerations no obvious deformity. Very limited exam due to patient pain could not tolerate much for exam. Neuro: SENSORIUM/ORIENTATION: Yes oriented to person, Yes oriented to place and Yes oriented to time Course Vital Signs: Vital signs: Vital Signs Temperature 97.7 F 09/10/24 06:21 Pulse Rate 83 09/10/24 06:21 Respiratory Rate 18 09/10/24 06:21 Blood Pressure 140/73 09/10/24 06:21 Pulse Oximetry 98 09/10/24 06:21 Oxygen Delivery Me thod Room Air 09/10/24 06:21 MDM - Extremity (Nontraumatic) Medical Decision Making Differential diagnosis includes ligamentous injury fracture dislocation or infection Plain film does not show any acute fracture. Moderate joint effusion noted on exam. Due to discomfort and acuity of injury not really able to accurately test for ligamentous instability or laxity. Will place patient in a knee immobilizer nonweightbearing with crutches and refer to orthopedic Medical Records I reviewed the patient's medical records. Lab Data I reviewed the patient's lab results. All radiology interpretation(s) finalized by discharge Discharge Plan Discharge Patient Disposition: Home Clinical Impression: Left knee sprain Qualifiers: Encounter type: initial encounter Involved ligament of knee: unspecified ligament Qualified Code(s): S83.92XA - Sprain of unspecified site of left knee, initial encounter Condition: Stable Prescriptions: New diclofenac sodium 75 mg tablet,delayed release (DR/EC) 75 mg PO Q12H PRN (Reason: pain) Qty: 20 0RF No Action acetaminophen 325 mg Tablet 325 mg PO QID Discharge Orders: Discharge ED (Routine); Ordered 09/10/24 Ordered By: Geovanny Lorenzo Referrals: Ehsan Hassan MD [Primary Care Provider] - Discharge Diet: Usual diet Discharge Activity: Increase activity as tolerated Patient Instructions: Knee Sprain (ED), Opioid Safety, Pain Management Activity Restrictions/Additional Instructions: Thank you for choosing [facility] for your healthcare needs today. It is very important that you follow up as instructed or that you return to the Emergency Department should you have concerns or if your condition changes or worsens in any way. You were seen in the emergency room with complaints of knee pain. Your x-ray did not show any acute fractures. Your description of the injury suspect you sprained the knee. It is possible that there is a torn ligament however because of the degree of discomfort it was difficult to test while you are in the emergency room. We recommend anti-inflammatories ice nonweightbearing follow-up with orthopedics. If you have persistent pain or dysfunction advanced imaging may be necessary depending on orthopedic exam and follow-up. Print Language: Sami Coding Level of Care Code ED Dietetic Technician for Aidan Russell
[2024-09-10] MEDS: ibuprofen 800 mg tablet PO (06:56)
[2024-09-10 07:28] VITALS: BP 140/73; PULSE 74; O2SAT 98
--- NOTE | 2024-09-10 07:56 | DCPLANNER ---
messaged ortho for er f/u
== END 2024-09-10 07:30 | disposition home or self-care (01) ==
PROVIDERS: Emergency Provider Family Medicine; PCP Family Medicine Adult Medicine
DX: S83.92XA Sprain of unspecified site of left knee, initial encounter (principal); X58.XXXA Exposure to other specified factors, initial encounter
CPT/HCPCS: 29530; 73562; 99283; E0114; J9999

== ENCOUNTER 2024-09-15 13:41 | Outpatient (CLI) | payer SELFPAY ==
--- NOTE | 2024-09-15 13:45 | MRR_ITS ---
PROCEDURE INFORMATION: Exam: MR Left Lower Extremity Joint Without Contrast, Knee Exam date and time: 09/15/2024 2:02 PM Age: 24 years old Clinical indication: Pain; Left; PT states he dislocated his knee 5 days ago; Additional info: Left knee patellar dislocation TECHNIQUE: Imaging protocol: Magnetic resonance imaging of the left lower extremity joint without contrast. Exam focused on the knee. COMPARISON: CR XR knee LT 3V* [id number] 09/10/2024 6:58 AM FINDINGS: Bones/joints: Bone marrow edema of the anterolateral femoral condyle and medial aspect of the patella consistent with lateral patellar dislocation. Mild heterogeneity of the medial patellar retinaculum, partial tear not excluded. Focal bone marrow edema at the proximal tibiofibular joint. 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 Mild lateral trochlear facet cartilaginous injury. Demlohxm-gs-vpyjh joint effusion with mild synovitis. Fat pads of knee: Edema within Hoffa's fat pad. Medial meniscus: Diminutive appearance of the medial meniscus with mild extrusion without evidence of surfacing tear. Lateral meniscus: No tear. Anterior cruciate ligament: No tear. Posterior cruciate ligament: No tear. Medial capsule and supporting structures: No tear. Lateral capsule and supporting structures: No tear. Extensor mechanism of knee: No tear. Soft tissues: Diffuse edema throughout the lateral soft tissues. Edema surrounding the biceps femoris musculature and tendon with mild perifascial edema at the lateral gastrocnemius. 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 Other additional associated findings as above.
== END 2024-09-15 13:42 | disposition home or self-care (01) ==
LOC: RAD 13:42
PROVIDERS: PCP Family Medicine Adult Medicine; Visit Provider Student in an Organized Health Care Education/Training Program
DX: M22.8X2 Other disorders of patella, left knee (principal); R93.6 Abnormal findings on diagnostic imaging of limbs; S83.32XA Tear of articular cartilage of left knee, current, initial encounter; X58.XXXA Exposure to other specified factors, initial encounter; M65.88 Other synovitis and tenosynovitis, other site; R60.0 Localized edema
CPT/HCPCS: 73721

== ENCOUNTER 2024-11-01 21:20 | Emergency (ER) | payer SELFPAY ==
[2024-11-01 21:25] VITALS: BP 131/79; PULSE 83; RESP 17; TEMP 37; O2SAT 98; BMI 25.8
--- NOTE | 2024-11-01 21:43 | W.ED.EYEPROB ---
HPI - Eye Problem General: Chief complaint: Eye Problems Stated complaint: Left Eye Blurry\Then filmy Time Seen by Provider: 11/01/24 21:34 History of Present Illness: Patient states he had sudden onset of blotchy vision out of the periphery of the left eye while he was watching TV. He states that has resolved. Then he developed a headache. No nausea or vomiting. Associated symptoms: Reports headache(s) Related Data Home Medications ?Medication ?Instructions ?Recorded ?Confirmed acetaminophen 325 mg tablet 325 mg PO QID 09/10/24 10/13/24 Previous Rx's ?Medication ?Instructions ?Recorded diclofenac sodium 75 mg 75 mg PO Q12H PRN pain #20 tabs 09/10/24 tablet,delayed release Allergies Allergy/AdvReac Type Severity Reaction Status Date / Time No Known Allergies Allergy Verified 11/01/24 21:28 Review of Systems General: Reports: 10 or more systems reviewed and unremarkable except in HPI and below Eyes: Reports: blurry vision Neuro: Reports: headache(s) PFSH ED PFSH: Medical History Gastroenteritis Allergic rhinitis due to allergen Pharyngitis GERD (gastroesophageal reflux disease) Chronic epididymitis Testicular/scrotal pain Varicocele present on ultrasound of scrotum Family History Unknown Cancer Testicular Cancer Social History Smoking and tobacco/nicotine status: current every day tobacco/nicotine user (vape) Quit status (tobacco/nicotine): has quit using Second hand smoke exposure: Yes Alcohol intake: never Substance/Drug Use: current Substance/Drug use frequency: few times a week Marital status: Single Current occupational status: employed Current occupation: [employer] Physical Exam Const: COMMON NORMALS: no acute distress, patient oriented x3 and no limitations GENERAL APPEARANCE: cooperative and comfortable HENMT: COMMON NORMALS: normocephalic, atraumatic, Normal nasal mucous membranes and turbinates present, moist oral mucous membranes and oropharynx normal HEAD & SCALP: normal to inspection, normocephalic and atraumatic FACE & SINUS: normal facial exam NOSE: Normal nasal mucous membranes and turbinates present Eye: COMMON NORMALS: Equal, round and reactive pupils present, EOMs intact bilaterally and conjunctivae normal GENERAL EYE: appearance normal, both eyes and all related structures CONJUNCTIVA: Yes conjunctivae normal PUPIL: Yes Equal, round and reactive pupils present Neck/C-Spine: COMMON NORMALS: supple and no JVD Chest: COMMONS NORMALS: normal inspection of the chest Resp: COMMON NORMALS: normal respiratory effort and clear to auscultation bilaterally AUSCULTATION: clear to auscultation bilaterally Cardio: COMMON NORMALS: no JVD, regular rate, regular rhythm, No gallops present (Cardio), No murmurs present (Cardio) and No rub (Cardio) RATE: regular rate RHYTHM: regular rhythm GI: COMMON NORMALS: Normal to inspection, nondistended, normoactive bowel sounds present, Soft to palpation and non-tender AUSCULTATION: Yes normoactive bowel sounds PALPATION: Yes Soft to palpation : COMMON NORMALS: Yes no CVA tenderness BLADDER/KIDNEY EXAM: Yes no CVA tenderness Back/Pelvis: COMMON NORMALS: no CVA tenderness and thoracic and lumbar spine normal to inspection Extremity: COMMON NORMALS: normal to inspection Neuro: COMMON NORMALS: patient oriented x3 and CN's II-XII intact bilaterally Psych: COMMON NORMALS: mental status grossly normal, Normal thought process present and cooperative THOUGHT PROCESS: Normal thought process present Skin: COMMON NORMALS: no rashes or lesions noted, turgor normal and no jaundice GENERAL SKIN EXAM: no rashes or lesions noted and turgor normal Course Vital Signs: Vital signs: Vital Signs Temperature 98.6 F 11/01/24 21:25 Pulse Rate 83 11/01/24 21:25 Respiratory Rate 17 11/01/24 21:25 Blood Pressure 131/79 11/01/24 21:25 Pulse Oximetry 98 11/01/24 21:25 Oxygen Delivery Me thod Room Air 11/01/24 21:25 MDM - Eye Problem Medical Decision Making It appears the patient likely had a scotoma with migraine headache. I offered him Imitrex but he declined. He states he would be fine just taking ibuprofen and/or Tylenol. Recommended he follow-up with his primary care physician as needed. He was discharged in stable condition. No radiology studies performed this visit Discharge Plan Discharge Patient Disposition: Home Clinical Impression: Migraine Qualifiers: Migraine type: migraine (< 15 days per month) with aura Status migrainosus presence: without status migrainosus Intractability: not intractable Qualified Code(s): G43.109 - Migraine with aura, not intractable, without status migrainosus Condition: Stable Prescriptions: No Action diclofenac sodium 75 mg tablet,delayed release (DR/EC) 75 mg PO Q12H PRN (Reason: pain) Qty: 20 0RF acetaminophen 325 mg Tablet 325 mg PO QID Discharge Orders: Discharge ED (Routine); Ordered 11/01/24 Ordered By: Vern Camargo Patient Instructions: Migraine Headache (ED) Activity Restrictions/Additional Instructions: Take Tylenol and/or ibuprofen as needed. Follow-up with your primary care physician as needed. Print Language: Maori Coding Level of Care Code ED Clinical Laboratory Assistant for Aidan Russell
== END 2024-11-01 21:57 | disposition home or self-care (01) ==
PROVIDERS: Emergency Provider Emergency Medicine
DX: G43.109 Migraine with aura, not intractable, without status migrainosus (principal); F17.290 Nicotine dependence, other tobacco product, uncomplicated
CPT/HCPCS: 99282

== ENCOUNTER 2025-03-29 14:07 | Emergency (ER) | payer SELFPAY ==
--- NOTE | 2025-03-29 14:11 | ECG_ITS ---
[facility] Test Date: 2025-03-29 Pat Name: Santiago Vera Department: Room: Gender: Male Information Operator: : 2000 Requested By: Geovanny Razo Order Number: [id number] Aide MD: Allan Reyes M.D. Measurements Intervals Show Low Rate: 87 P: 73 KS: 158 QRS: 76 QRSD: 86 T: 53 QT: 351 QTc: 424 Interpretive Statements SINUS RHYTHM WITH SINUS ARRHYTHMIA Compared to ECG 01/21/2020 01:11:48 Sinus bradycardia no longer present Early repolarization no longer present Electronically Signed On 03-29-2025 18:10:51 WOOD BOATBUILDER by Allan Reyes M.D. [email or web address]
--- NOTE | 2025-03-29 14:12 | XR_ITS ---
WS: [id number] Exam: XR chest 1V portable [id number] Date/Time of Exam: 03/29/2025 2:12 PM Reason For Exam: dyspnea/cough Comparison 09/20/2019. Lungs are fully inflated and clear. Normal cardiomediastinal silhouette and regional bony elements. Scattered calcified granulomas. XR/XR chest 1V portable [id number] IMPRESSION: 1. Negative chest.
[2025-03-29 14:18] VITALS: BP 150/78; PULSE 76; TEMP 36.8; O2SAT 97
--- NOTE | 2025-03-29 14:25 | ED_ITS ---
HPI - Chest Pain 2 General: Chief Complaint: Chest Pain Stated Complaint: CP/SOB Time Seen by Provider: 03/29/25 14:11 History of Present Illness: 24-year-old male presents emergency incl uding chest pain and shortness of breath been going on for several months. He has formally smoked now he vapes. He has not had a productive cough no arrhythmias no rapid heart rates or palpitations no trauma to the chest no fever sweats chills or productive cough. Associated symptoms: Deny abdominal pain, dyspnea or fever(s) Related Data Home Medications ?Medication ?Instructions ?Recorded ?Confirmed No Known Home Medications 03/29/2503/20 Allergies Allergy/AdvReac Type Severity Reaction Status Date / Time No Known Allergies Allergy Verified 03/29/25 14:21 Review of Systems 2 Const: Denies: fever(s) or chills Card: Denies: chest pain Resp: Denies: dyspnea GI: Denies: abdominal pain : Denies: dysuria, urinary frequency or urinary urgency Musc: Denies: neck pain or back pain Skin/Breast: Denies: rash PFSH ED 2 PFSH: Medical History Gastroenteritis Allergic rhinitis due to allergen Pharyngitis GERD (gastroesophageal reflux disease) Chronic epididymitis Testicular/scrotal pain Varicocele present on ultrasound of scrotum Family History Unknown Cancer Testicular Cancer Social History Smoking and tobacco/nicotine status: current every day tobacco/nicotine user (vape) Quit status (tobacco/nicotine): has quit using Second hand smoke exposure: Yes Alcohol intake: never Substance/Drug Use: current Substance/Drug use frequency: few times a week Marital status: Single Current occupational status: employed Current occupation: [employer] Physical Exam 2 Const: COMMON NORMALS: no acute distress GENERAL APPEARANCE: cooperative and comfortable ORIENTATION/CONSCIOUSNESS: Yes awake, Yes oriented to person, Yes oriented to place and Yes oriented to time HENMT: COMMON NORMALS: normocephalic, atraumatic and hearing grossly normal bilaterally HEAD & SCALP: normocephalic and atraumatic Resp: COMMON NORMALS: normal respiratory effort, No retractions, No use of accessory muscles and clear to auscultation bilaterally AUSCULTATION: clear to auscultation bilaterally Cardio: COMMON NORMALS: regular rate, regular rhythm and No murmurs present (Cardio) RATE: regular rate RHYTHM: regular rhythm GI: COMMON NORMALS: Soft to palpation and No hepatosplenomegaly present A USCULTATION: Yes normoactive bowel sounds PALPATION: Yes Soft to palpation, No Tenderness to palpation present (GI), No Guarding due to palpation present (GI) and Yes No hepatosplenomegaly present Extremity: COMMON NORMALS: normal to inspection, capillary refill normal, no clubbing, cyanosis or edema, no calf tenderness and no pedal edema Neuro: SENSORIUM/ORIENTATION: Yes oriented to person, Yes oriented to place and Yes oriented to time Skin: COMMON NORMALS: no rashes or lesions noted GENERAL SKIN EXAM: no rashes or lesions noted Course 2 Vital Signs: Vital signs: Vital Signs Temperature 98.2 F 03/29/25 14:18 Pulse Rate 76 03/29/25 14:18 Blood Pressure 150/78 03/29/25 14:18 Pulse Oximetry 97 03/29/25 14:18 Oxygen Delivery Me thod Room Air 03/29/25 14:18 MDM - Chest Pain Medical Decision Making Chest x-ray negative D-dimer negative initial troponin negative patient has had this for several weeks. Is not cardiac in nature. Suspect he may need to have pulmonary function testing vital signs stable and exam was unremarkable discharged home encouraged and follow-up with primary care for further evaluation complaints of shortness of breath. Lab Data 03/29/25 14:26 03/29/25 14:26 Radiology Impressions Chest X-Ray 03/29/25 14:12 IMPRESSION: 1. Negative chest. Laboratory Results WBC 5.13 10^3/uL (3.29-11.43) 03/29/25 14:26 RBC 5.34 10^6/uL (3.85-5.65) 03/29/25 14:26 Hgb 14.90 g/dL (11.27-16.99) 03/29/25 14:26 Hct 44.2 % (37-53) 03/29/25 14:26 MCV 82.8 fl (82-101) 03/29/25 14:26 MCH 27.9 pg (27-33) 03/29/25 14: MCHC 33.7 g/dL (30-55) 03/29/25 14: RDW 12.8 % (12.1-15.1) 03/29/25 14: Plt Count 282 10^3/cmm (157-399) 03/29/25 14: MPV 9.2 fL (7.4-10.4) 03/29/25 14: Neut % (Auto) 52.2 % 03/29/25 14:26 Lymph % (Auto) 32.0 % 03/29/25 14:26 Scott % (Auto) 11.1 % 03/29/25 14: Eos % (Auto) 2.7 % 03/29/25 14: Baso % (Auto) 1.6 % 03/29/25 14: Neut # (Auto) 2.68 10^3/uL (1.8-7.7) 03/29/25 14: Lymph # (Auto) 1.6 10^3/uL (0.8-4.8) 03/29/25 14:26 Scott # (Auto) 0.6 10^3/uL (0.2-0.9) 03/29/25 14: Eos # (Auto) 0.1 10^3/uL (0.0-0.8) 03/29/25 14: Baso # (Auto) 0.1 10^3/uL (0.0-0.1) 03/29/25 14: Nucleated RBC % (auto) 0 % 03/29/25 14: Nucleated RBCs # 0.0 /100WBC 03/29/25 14: D-Dimer <= 0.27 ug/mLFEU (0-0.59) 03/29/25 14: Sodium 137 mmol/L (136-145) 03/29/25 14: Potassium 3.9 mmol/L (3.5-5.1) 03/29/25 14: Chloride 101 mmol/L (98-107) 03/29/25 14: Carbon Dioxide 26 mmol/L (22-29) 03/29/25 14: Anion Gap 13.9 (5-19) 03/29/25 14: BUN 11 mg/dL (6-20) 03/29/25 14:26 Creatinine 0.9 mg/dL (0.7-1.2) 03/29/25 14:26 GFR Calculation 102.8 mL/min (90-130) 03/29/25 14:26 Glucose 80 mg/dL (65-115) 03/29/25 14:26 Calculated Osmolality 282 mOsm/kg (285-295) L 03/29/25 14:26 Calcium 9.5 mg/dL (8.5-10.5) 03/29/25 14:26 Total Bilirubin 0.8 mg/dL (0.15-1.2) 03/29/25 14:26 AST 14 U/L (0-40) 03/29/25 14:26 ALT 13 U/L (0-41) 03/29/25 14:26 Alkaline Phosphatase 109 U/L (40-130) 03/29/25 14:26 Troponin T Baseline < 6 ng/L (0-15) 03/29/25 14:26 Total Protein 6.8 g/dL (6.6-8.7) 03/29/25 14:26 Albumin 4.8 g/dL (3.5-5.2) 03/29/25 14:26 Globulin 2.0 g/dL (1.3-4.6) 03/29/25 14:26 All radiology interpretation(s) finalized by discharge EKG Data EKG 1: I personally reviewed and interpreted this EKG as follows: Interpretation: EKG 03/29/2025 1415 sinus rhythm no acute ST changes noted rate of 67 parable 158 QTc 396 no EKG available for comparison Discharge Plan Discharge Patient Disposition: Home Clinical Impression: Dyspnea Condition: Stable Prescriptions: No Action No Known Home Medications Discharge Orders: Discharge ED (Routine); Ordered 03/29/25 Ordered By: Geovanny Lorenzo Discharge Diet: Usual diet Discharge Activity: Resume usual activity Patient Instructions: Opioid Safety, Pain Management, Patient Portal & Annie Instructions Activity Restrictions/Additional Instructions: [facility]. It is very important that you follow up as instructed or that you return to the Emergency Department should you have concerns or if your condition changes or worsens in any way. Emergency department visits are focused on emergent conditions, in some cases you may require further evaluation on an outpatient basis. You are seen emergency room complaint shortness of breath chest x-ray normal cardiac enzymes screening for blood clots and chest x-ray are all normal as well recommend you follow-up with your primary care doctor he may need to have pulmonary function test done. (Please note that included in your discharge packet is information concerning opioid safety and pain management. This information is given to all patients were discharged from the ER regardless of their discharge diagnosis or the medicines they usually take or are prescribed.) Print Language: Guatemalan Coding Level of Care Code ED Stencil Sprayer for Chg Fwd Heart Score HEART Score Components History: Slightly Suspicous EKG: Normal Age: Less than 45 yrs Risk Factors: No Risk Factors Known Troponin: Baseline Trop <16 ng/L HEART Score RESULT HEART Score: 0
[2025-03-29 14:32] LABS: Hematocrit 44.2 % (37-53); Hemoglobin 14.90 g/dL (11.27-16.99); Mean Corpuscular HGB Conc 33.7 g/dL (30-55); Mean Corpuscular Hemoglobin 27.9 pg (27-33); Mean Corpuscular Volume 82.8 fl (82-101); Nucleated Red Blood Cells % 0 %; Platelet Count 282 10^3/cmm (157-399); Red Blood Count 5.34 10^6/uL (3.85-5.65); White Blood Count 5.13 10^3/uL (3.29-11.43)
[2025-03-29 14:53] LABS: Troponin(5th) Baseline < 6 ng/L (0-15)
[2025-03-29 14:55] LABS: Alanine Aminotransferase 13 U/L (0-41); Albumin Level 4.8 g/dL (3.5-5.2); Alkaline Phosphatase 109 U/L (40-130); Anion Gap 13.9 (5-19); Aspartate Amino Transferase 14 U/L (0-40); Blood Urea Nitrogen 11 mg/dL (6-20); Calcium 9.5 mg/dL (8.5-10.5); Carbon Dioxide 26 mmol/L (22-29); Chloride 101 mmol/L (98-107); Creatinine Clr Calc Pharmacy 137.3008; Globulin 2.0 g/dL (1.3-4.6); Glucose 80 mg/dL (65-115); Osmolality Calculated 282 mOsm/kg (285-295); Potassium 3.9 mmol/L (3.5-5.1); Sodium 137 mmol/L (136-145); Total Protein 6.8 g/dL (6.6-8.7)
[2025-03-29 15:23] VITALS: BP 109/72; PULSE 88; RESP 16; O2SAT 97
== END 2025-03-29 15:21 | disposition home or self-care (01) ==
PROVIDERS: Emergency Provider Family Medicine
DX: R06.00 Dyspnea, unspecified (principal); F17.290 Nicotine dependence, other tobacco product, uncomplicated
CPT/HCPCS: 36415; 71045; 80053; 84484; 85025; 85378; 93005; 99285